=== PATIENT | female | born 1955 | race Caucasian/White ===

== ENCOUNTER 2020-02-16 14:16 | Outpatient (CLI) | payer MEDICARE, OTHER, SELFPAY ==
[2020-02-16 15:25] LABS: Basophils # 0.1 10^3/uL (0.0-0.1); Basophils % 0.5 %; Eosinophils # 0.1 10^3/uL (0.0-0.8); Eosinophils % 0.8 %; Hematocrit 44.4 % (37.0-47.0); Hemoglobin 13.9 g/dL (11.5-15.3); Lymphocytes # 2.9 10^3/uL (0.8-4.8); Lymphocytes % 28.7 %; Mean Corpuscular HGB Conc 31.3 g/dL (30.0-36.0); Mean Corpuscular Hemoglobin 28.4 pg (28.0-34.0); Mean Corpuscular Volume 90.6 fL (81-99); Mean Platelet Volume 9.6 fL (7.4-10.4); Monocytes # 0.7 10^3/uL (0.2-0.9); Monocytes % 7.2 %; Neutrophils # 6.24 10^3/uL (1.8-7.7); Neutrophils % 62.4 %; Nucleated Red Blood Cells % 0 %; Platelet Count 256 10^3/cmm (130-400); Red Cell Distribution Width 13.7 % (12.1-15.1)
[2020-02-16 16:01] LABS: 25 Hydroxy Vitamin D 17 ng/mL (30-100); Alanine Aminotransferase 24 U/L (0-33); Albumin Level 4.2 g/dL (3.5-5.2); Alkaline Phosphatase 114 IU/L (35-105); Anion Gap 15.5 (5-19); Aspartate Amino Transferase 22 U/L (0-32); Blood Urea Nitrogen 18 mg/dL (8-23); Calcium 9.6 mg/dL (8.5-10.5); Carbon Dioxide 25 mmol/L (22-29); Chloride 102 mmol/L (98-107); Globulin 3.1 g/dL (1.3-4.6); Glomerular Filtration Rate 62.8 mL/min (90-130); Glucose 99 mg/dL (65-115); Osmolality Calculated 283 mOsm/kg (285-295); Potassium 4.5 mmol/L (3.5-5.1); Sodium 138 mmol/L (136-145); Total Bilirubin 0.2 mg/dL (0.15-1.2); Total Protein 7.3 g/dL (6.6-8.7)
--- NOTE | 2020-02-18 16:22 | ONC FU_ITS ---
Dr. Rod Patient Follow-Up Note Patient: Kyler Dugan Unit #: [id number]: [id number] Dicatated By: Lenard Rod M.D.Date of Visit:Feb 16, 2020 Onc Med Follow-up/Prog Note Chief Complaint: Breast cancer. History of Present Illness: This is a 64 year-old woman with grade 2 infiltrating adenocarcinoma of the right breast, stage IIIA (pT2, pN2, M0), ER/TN positive and HER-2/syeda nonamplified. She had presented with a lump, which apparently correlated with an enlarged right axillary lymph node. She had first become aware of this in February 2015. Mammogram showed a spiculated mass in the upper outer quadrant measuring 2.2 x 2.7 x 2.6 cm. It contained numerous pleomorphic calcifications. In the breast tail/axilla there was an enlarged lymph node measuring 4.3 x 3.8 cm. Smaller adjacent subcentimeter lymph nodes also were noted. Ultrasound showed an irregular mass, the hypoechoic portion of which measured 2.2 x 1.6 x 1.4 cm. It also showed a 4.2 x 2.5 cm lymph node in the right axilla and a smaller node measuring 8.8 mm. She was seen by Dr. Mariscal and on 03/08/15 she underwent excision of the right breast mass and excision of the right axillary lymph node. The breast mass was a grade 2 infiltrating adenocarcinoma, not otherwise specified. It measured 3.1 x 3.1 cm. Tumor was noted within lymphovascular spaces. There was a component of DCIS, estimated at less than 5% of the tumor volume. Numerous margins were noted to be positive. The tumor was ER positive at 100%. The progesterone receptor was also reported positive at 1% staining, but strong intensity. It was negative for overexpression of HER-2/syeda, 1+ by IHC, and amplification ratio 1.3 by FISH. The axillary lymph node did show metastatic adenocarcinoma. The size of the lymph node was not reported. She underwent re-excision lumpectomy on 03/22/15. Pathology showed microscopic foci of residual adenocarcinoma with microscopic clusters identified within lymphovascular spaces. The final margins were free. She then underwent right low axillary dissection on 04/12/2015. Pathology showed metastatic adenocarcinoma involving 3 of 6 axillary lymph nodes. I had seen her initially on 03/30/2015, and I had recommended adjuvant chemotherapy with ACT. She did have a staging PET/CT, which was negative for metastatic disease. She completed 4 cycles of dose dense AC from 04/19/2015 thru 06/07/2015. She did have multiple side effects with the chemotherapy including fatigue, myelosuppression, diarrhea, and dehydration. Following the 4th cycle she developed symptoms of acute diverticulitis, and I did delay starting the Taxol portion of her chemotherapy until 07/03/2015. As of 08/28/2015 she completed her eighth weekly treatment of Taxol. Her treatment was stopped at that point due to increasing toxicity, primarily neuropathy. She then underwent radiation to the right breast. She completed treatment on 12/24/2015 to a total dose of 6040 cGy. She was seen for a follow-up visit on 01/02/2016. At that time she had a skin eruption on the right arm which appeared consistent with herpes zoster. She was treated with acyclovir, and she also was given gabapentin for neuropathy pain. Adjuvant hormonal therapy with anastrozole 1 mg daily began in April 2016. She had baseline DEXA scan in September 2015 which showed normal bone density, T score 0.1 in the lumbar spine, 0.6 in the left hip, and 0.2 in the right hip. Her laboratory studies in January 2017 did show evidence of vitamin D deficiency. I had seen her for a follow-up visit in January 2017. At that point she had stopped taking anastrozole because of a significant increase in her joint pain and in her fatigue. By the following month she was feeling better, and at that point she was given a prescription to start exemestane 25 mg daily. She actually didn't start taking it until some time in April. Within a month and a half, she stopped it due to generalized aching and hurting, to the point that she couldn't walk. I had seen her for a follow-up visit on 07/22/2017. At that point she was beginning to feel better, and I advised her to remain off the medication. I had then seen her again in August to discuss the possibility of continuing adjuvant hormonal therapy with tamoxifen. Initially she was undecided, but as of her follow-up visit on 12/23/2017 she agreed to start tamoxifen at 20 mg daily. She has otherwise been in good health. She has no other ongoing medical illnesses. Her only other surgery was a cholecystectomy. She is a nonsmoker. INTERIM HISTORY: She quit tamoxifen after 2 months because of side effects, the most significant of which was severe muscle cramping. She had tried taking it again in August, but with the same result. I had seen her for a follow-up visit on 09/29/2018. At that time she agreed to go back on a trial of anastrozole at 1 mg daily. She is seen for a follow-up visit. She has been feeling pretty good generally. She says her energy is okay, though not the greatest. However, she has normal activity. ECOG score 0. Her appetite is good. She has gained weight. She does not have fever. She does have some hot flashes and sweating. She has no shortness of breath, cough, or chest pain. She had an episode of nausea about a week ago, but that resolved. She has no other GI or complaints. She does have some pain when she first gets up in the morning, but otherwise no joint or bone pain. She does not complain of headache or dizziness. She sometimes still has some numbness in her hands. Her neuropathy has otherwise resolved. Medications: Anastrozole 1 Tablet (of 1 mg) Oral daily, Loratadine 1 (10 mg) Tablet Oral daily PRN, Meclizine HCl 1 Tablet (of 25 mg) Oral PRN, Meloxicam 1 Tablet (of 7.5 mg) Oral daily Allergies: No Known Allergies. Review of Systems: Constitutional - Her energy is low, but she has normal activity. Her appetite is good and weight is stable. No fevers. She has occasional hot flashes with sweating. ECOG score is 0, ENMT - She has some sinus congestion/drainage. No mouth sores. No sore throat or difficulty swallowing, Hematologic/Lymphatic - No abnormal bruising or bleeding, Respiratory - No shortness of breath. No cough. No pleuritic pain or hemoptysis, Cardiovascular - No angina pain. No palpitations, Gastrointestinal - She had some nausea about one week ago, since resolved. No vomiting. No heartburn or acid reflux. No diarrhea or constipation. No blood in the stool or black stools, Genitourinary (F) - No dysuria or hematuria. No urinary frequency. No urgency or incontinence, Musculoskeletal - No joint or bone pain, Integumentary - No skin complications, Neurologic - No headache or dizziness. She still occasionally has some numbness in hands. No other focal neurologic symptoms, Psychiatric - No anxiety or depression. No insomnia. Vital Signs: Performed on Feb 16, 2020 16:00 Height - 67.00 in Weight - 181.0 lbs (HIGH) BSA - 1.94 sq.m BMI - 28.35 Temperature - 99.0 F (HIGH) Pulse - 100 /min Respiration - 20 /min BP - 138/88 mm(hg) O2 Sat - 96 % Pain - 0 Physical Examination: Constitutional - She looks good generally, Eyes - Sclerae nonicteric. Conjunctivae clear, ENMT - No lesions noted in the oral cavity, Hematologic/Lymphatic - No cervical or clavicular adenopathy, Respiratory - Lungs are clear with good air movement bilaterally, Cardiovascular - Heart rhythm is regular. There is no murmur, gallop or rub noted, Breasts - There are no breast masses noted. There is no axillary adenopathy, Abdomen - Soft. Liver and spleen are not enlarged. There is no abdominal mass or ascites noted and there is no inguinal adenopathy, Extremities - No edema, Neurologic - There are no focal neurologic deficits noted. Lab/Imaging: Test performed on Feb 16, 2020 15:05 Sodium 138 mmol/L Vitamin D (25-Hydroxy), Total 17 ng/mL Potassium 4.5 mmol/L Chloride 102 mmol/L CO2 25 mmol/L Anion Gap 15.5 BUN 18 mg/dL Creatinine 0.9 mg/dL Cr Clearance (Est) 80.7700 mL/min eGFR 62.8 mL/min Glucose 99 mg/dL Calcium 9.6 mg/dL Protein, Total 7.3 g/dL Albumin 4.2 g/dL Globulin 3.1 g/dL Bilirubin, Total 0.2 mg/dL ALT (SGPT) 24 U/L AST (SGOT) 22 U/L Alkaline Phosphatase 114 IU/L WBC 10.0 10 3/uL RBC 4.90 10 6/uL HGB 13.9 g/dL HCT 44.4 % MCV 90.6 fL MCH 28.4 pg MCHC 31.3 g/dL RDW 13.7 % Platelet Count 256 10 3/cmm MPV 9.6 fL Neutrophils 6.24 10 3/uL Lymphocytes 2.9 10 3/uL Monocytes 0.7 10 3/uL Eosinophils 0.1 10 3/uL Basophils 0.1 10 3/uL Neutrophil % 62.4 % Lymphocyte % 28.7 % Monocyte % 7.2 % Eosinophil % 0.8 % Basophils % 0.5 % NRBC % 0 % Impression: 1. Patient with grade 2 infiltrating adenocarcinoma of the right breast, stage IIIA (pT2, pN2, M0), ER/TN positive and HER-2/syeda nonamplified. She underwent lumpectomy/excision of right axillary lymph node on 03/08/15 followed by reexcision lumpectomy on 03/22/15 and right low axillary dissection on 04/12/2015. 2. She was given adjuvant chemotherapy with dose dense Adriamycin/cyclophosphamide followed by weekly Taxol. She completed her 4th cycle of Adriamycin/cyclophosphamide on 06/07/2015. She experienced multiple toxicities including severe fatigue, diarrhea, dehydration, and myelosuppression. She then presented with symptoms of acute diverticulitis, necessitating a treatment delay. 3. She started weekly Taxol on 07/03/2015. As of 08/28/2015 she had completed 8 weekly infusions of Taxol. Treatment was stopped at that point due to increasing neuropathy. 4. She was then given radiation to the right breast, completed on 12/24/2015 to a total dose of 6040 cGy. 5. Adjuvant hormonal therapy with anastrozole 1 mg daily began in April 2016. 6. She has a significant family history which includes melanoma involving two first degree relatives and breast cancer involving one first degree relative. Her radiation treatment was complicated by an episode of herpes zoster in the right arm. It resolved with treatment. She began adjuvant hormonal therapy with anastrozole 1 mg daily in April 2016. She had tolerated it well initially, but by January 2017 she had to stop taking it due to increasing fatigue and musculoskeletal pain. Her symptoms subsequently improved, and she was then given a prescription for exemestane 25 mg daily. She started it sometime in April and she stopped taking it within 1 1/2 months due to musculoskeletal pain and other side effects. During this time there had been a slight increase in her alkaline phosphatase level. A specific cause for that was not determined. As of her follow-up visit on 07/22/2017 her symptoms were improving, and the alkaline phosphatase level appeared to be declining. She was advised to remain off the exemestane. On 12/23/2017 she began further adjuvant hormonal therapy with tamoxifen 20 mg daily. She had some hot flashes and some muscle cramping with it, but initially she was able to tolerated with acceptable toxicity. The muscle cramping, though, continued to worsen, and she eventually did have to stop taking it. She tried it again in August, but with the same result. In September 2018 she agreed to try going back on anastrozole 1 mg daily. She has since then continued to have some fatigue, though she pretty much has normal activity. She has only minimal residual neuropathy. Overall, she seems to be tolerating the anastrozole well, and thus far there has been no evidence of recurrence of the breast cancer. Plan: She continues adjuvant hormonal therapy with anastrozole 1 mg daily. She will be scheduled for a follow-up visit in 6 months. In the meantime, she will be scheduled for a bone density study, as it was last done in 2015. Signed By: Lenard Rod M.D. <<Signature on File>>
== END 2020-02-16 14:17 | disposition home or self-care (01) ==
LOC: ONCMED 14:24
PROVIDERS: Visit Provider Internal Medicine Medical Oncology
DX: C50.911 Malignant neoplasm of unspecified site of right female breast (principal); G62.0 Drug-induced polyneuropathy; T45.1X5S Adverse effect of antineoplastic and immunosuppressive drugs, sequela; E55.9 Vitamin D deficiency, unspecified; Z17.0 Estrogen receptor positive status [ER+]; Z79.811 Long term (current) use of aromatase inhibitors; Z92.3 Personal history of irradiation; Z92.21 Personal history of antineoplastic chemotherapy; Z80.3 Family history of malignant neoplasm of breast; Z80.8 Family history of malignant neoplasm of other organs or systems
CPT/HCPCS: 36415; 80053; 82306; 85025; 99214

== ENCOUNTER 2020-03-05 14:17 | Outpatient (CLI) | payer MEDICARE, OTHER, SELFPAY ==
--- NOTE | 2020-03-05 14:31 | XR_ITS ---
WS: [id number] DEXA (DUAL ENERGY X-RAY ABSORPTIOMETRY) Bone mineral density was performed using a Pins machine. HISTORY: ASYMPTOMATIC MENOPAUSAL STATE, MALIGNANT NEOPLASM OF BREAST COMPARISON: 10/08/2015 Lumbar spine BMD (L1-L4): 1.160 g/cm2 T score: -0.2 Z score: 0.9 Total hip BMD: Left: 1.080 g/cm2. T score: 0.6 Z score: 1.4 Right: 1.046 g/cm2. T score: 0.3 Z score: 1.2 10 year probability of a major osteoporotic fracture is 7% Compared to the prior study from 10/08/2015. Lumbar spine bone mineral density has decreased by 2.4%. Bilateral hips bone mineral density has increased by 0.4%. XR/XR DEXA axial skeleton* [id number] IMPRESSION: NORMAL BONE MINERAL DENSITY based upon the WHO classification for females. Significant decrease in bone mineral density in the lumbar spine since the prio r study.
== END 2020-03-05 14:18 | disposition home or self-care (01) ==
LOC: RADWPI 14:23
PROVIDERS: Visit Provider Internal Medicine Medical Oncology
DX: Z78.0 Asymptomatic menopausal state (principal); C50.919 Malignant neoplasm of unspecified site of unspecified female breast
CPT/HCPCS: 77080

== ENCOUNTER 2020-06-25 14:51 | Outpatient (CLI) | payer MEDICARE, OTHER, SELFPAY ==
--- NOTE | 2020-06-25 14:58 | MM_ITS ---
WS: [id number] DIAGNOSTIC BILATERAL DIGITAL MAMMOGRAM WITH CAD HISTORY: HX OF BREAST CA COMPARISON: 06/23/2019 and 06/18/2018 and 06/16/2017 TECHNIQUE: Bilateral craniocaudad, mediolateral oblique, and mediolateral views are submitted. Comput er aided detection utilized. Breast composition: There are scattered areas of fibroglandular density. Volume loss in the RIGHT bharati ast from prior lumpectomy. Surgical scar at the lumpectomy site in the upper-outer quadrant is stable . There is mild increased trabecular thickening which is stable throughout the breast and soft tissue thickening. LEFT breast is negative. MM/[place] [id number] IMPRESSION: BI-RADS: 2-Benign FOLLOW UP: 1 Year Follow-up
== END 2020-06-25 14:52 | disposition home or self-care (01) ==
LOC: RADSHAW 14:55
PROVIDERS: Visit Provider Internal Medicine Medical Oncology
DX: Z85.3 Personal history of malignant neoplasm of breast (principal)
CPT/HCPCS: 77066

== ENCOUNTER → 2020-07-30 09:26 | Outpatient (BNVA) | payer MEDICARE, OTHER, SELFPAY | PROVIDERS: Visit Provider Nurse Practitioner Family | DX: Z20.828 Contact with and (suspected) exposure to other viral communicable diseases (principal) | CPT/HCPCS: 87635 ==

== ENCOUNTER 2020-09-20 11:13 | Outpatient (CLI) | payer MEDICARE, OTHER, SELFPAY ==
[2020-09-20 12:03] LABS: Basophils # 0.1 10^3/uL (0.0-0.1); Basophils % 0.7 %; Eosinophils % 0.4 %; Hematocrit 45.6 % (37.0-47.0); Hemoglobin 14.6 g/dL (11.5-15.3); Lymphocytes # 2.4 10^3/uL (0.8-4.8); Lymphocytes % 29.1 %; Mean Corpuscular Hemoglobin 28.3 pg (28.0-34.0); Mean Corpuscular Volume 88.4 fL (81-99); Mean Platelet Volume 9.5 fL (7.4-10.4); Monocytes # 0.7 10^3/uL (0.2-0.9); Neutrophils # 5.11 10^3/uL (1.8-7.7); Neutrophils % 61.6 %; Nucleated Red Blood Cells % 0 %; Platelet Count 265 10^3/cmm (130-400); Red Blood Count 5.16 10^6/uL (4.1-5.3); Red Cell Distribution Width 13.5 % (12.1-15.1); White Blood Count 8.3 10^3/uL (4.0-10.0)
[2020-09-20 12:43] LABS: 25 Hydroxy Vitamin D 20 ng/mL (30-100); Alanine Aminotransferase 36 U/L (0-33); Albumin Level 4.3 g/dL (3.5-5.2); Alkaline Phosphatase 138 IU/L (35-105); Aspartate Amino Transferase 26 U/L (0-32); Blood Urea Nitrogen 15 mg/dL (8-23); Calcium 9.8 mg/dL (8.5-10.5); Carbon Dioxide 26 mmol/L (22-29); Chloride 106 mmol/L (98-107); Globulin 3.3 g/dL (1.3-4.6); Glomerular Filtration Rate 62.8 mL/min (90-130); Glucose 86 mg/dL (65-115); Osmolality Calculated 290 mOsm/kg (285-295); Sodium 140 mmol/L (136-145); Total Bilirubin 0.3 mg/dL (0.15-1.2); Total Protein 7.6 g/dL (6.6-8.7)
--- NOTE | 2020-09-21 09:43 | ONC FU_ITS ---
Dr. Rod Patient Follow-Up Note Patient: Kyler Dugan Unit #: [id number]: 1955 Dicatated By: Lenard Rod M.D.Date of Visit:Sep 20, 2020 Onc Med Follow-up/Prog Note Chief Complaint: Breast cancer. History of Present Illness: This is a 64 year-old woman with grade 2 infiltrating adenocarcinoma of the right breast, stage IIIA (pT2, pN2, M0), ER/HI positive and HER-2/syeda nonamplified. She had presented with a lump, which apparently correlated with an enlarged right axillary lymph node. She had first become aware of this in February 2015. Mammogram showed a spiculated mass in the upper outer quadrant measuring 2.2 x 2.7 x 2.6 cm. It contained numerous pleomorphic calcifications. In the breast tail/axilla there was an enlarged lymph node measuring 4.3 x 3.8 cm. Smaller adjacent subcentimeter lymph nodes also were noted. Ultrasound showed an irregular mass, the hypoechoic portion of which measured 2.2 x 1.6 x 1.4 cm. It also showed a 4.2 x 2.5 cm lymph node in the right axilla and a smaller node measuring 8.8 mm. She was seen by Dr. Mariscal and on 03/08/15 she underwent excision of the right breast mass and excision of the right axillary lymph node. The breast mass was a grade 2 infiltrating adenocarcinoma, not otherwise specified. It measured 3.1 x 3.1 cm. Tumor was noted within lymphovascular spaces. There was a component of DCIS, estimated at less than 5% of the tumor volume. Numerous margins were noted to be positive. The tumor was ER positive at 100%. The progesterone receptor was also reported positive at 1% staining, but strong intensity. It was negative for overexpression of HER-2/syeda, 1+ by IHC, and amplification ratio 1.3 by FISH. The axillary lymph node did show metastatic adenocarcinoma. The size of the lymph node was not reported. She underwent re-excision lumpectomy on 03/22/15. Pathology showed microscopic foci of residual adenocarcinoma with microscopic clusters identified within lymphovascular spaces. The final margins were free. She then underwent right low axillary dissection on 04/12/2015. Pathology showed metastatic adenocarcinoma involving 3 of 6 axillary lymph nodes. I had seen her initially on 03/30/2015, and I had recommended adjuvant chemotherapy with ACT. She did have a staging PET/CT, which was negative for metastatic disease. She completed 4 cycles of dose dense AC from 04/19/2015 thru 06/07/2015. She did have multiple side effects with the chemotherapy including fatigue, myelosuppression, diarrhea, and dehydration. Following the 4th cycle she developed symptoms of acute diverticulitis, and I did delay starting the Taxol portion of her chemotherapy until 07/03/2015. As of 08/28/2015 she completed her eighth weekly treatment of Taxol. Her treatment was stopped at that point due to increasing toxicity, primarily neuropathy. She then underwent radiation to the right breast. She completed treatment on 12/24/2015 to a total dose of 6040 cGy. She was seen for a follow-up visit on 01/02/2016. At that time she had a skin eruption on the right arm which appeared consistent with herpes zoster. She was treated with acyclovir, and she also was given gabapentin for neuropathy pain. Adjuvant hormonal therapy with anastrozole 1 mg daily began in January 2016. She had baseline DEXA scan in September 2015 which showed normal bone density, T score 0.1 in the lumbar spine, 0.6 in the left hip, and 0.2 in the right hip. Her laboratory studies in January 2017 did show evidence of vitamin D deficiency. I had seen her for a follow-up visit in January 2017. At that point she had stopped taking anastrozole because of a significant increase in her joint pain and in her fatigue. By the following month she was feeling better, and at that point she was given a prescription to start exemestane 25 mg daily. She actually didn't start taking it until some time in April. Within a month and a half, she stopped it due to generalized aching and hurting, to the point that she couldn't walk. I had seen her for a follow-up visit on 07/22/2017. At that point she was beginning to feel better, and I advised her to remain off the medication. I had then seen her again in August to discuss the possibility of continuing adjuvant hormonal therapy with tamoxifen. Initially she was undecided, but as of her follow-up visit on 12/23/2017 she agreed to start tamoxifen at 20 mg daily. She quit it after 2 months because of side effects, the most significant of which was severe muscle cramping. She had tried taking it again in August, but with the same result. I had seen her for a follow-up visit on 09/29/2018. At that time she agreed to go back on a trial of anastrozole at 1 mg daily, and during subsequent followup she was able to tolerate it with acceptable toxicity. She has otherwise been in good health. She has no other ongoing medical illnesses. Her only other surgery was a cholecystectomy. She is a nonsmoker. INTERIM HISTORY: She is seen for a follow-up visit. She has been feeling pretty good generally. She says she was off the anastrozole during the month of July because of pain in her left heel. It did not improve when she was off treatment. She otherwise has just mild joint pain in her hands and sometimes in her feet. Her energy has been pretty good. She has normal activity. ECOG score is zero. She has good appetite. She has not had fever or night sweats. She sometimes has hot flashes. She has some shortness of breath with activity. She has chronic sinus drainage and cough. She does not complain of chest pain. She has no GI or complaints. She does not complain of headache or dizziness. She has just occasional neuropathy symptoms in her hands. Medications: Anastrozole 1 Tablet (of 1 mg) Oral daily, Loratadine 1 (10 mg) Tablet Oral daily PRN, Meclizine HCl 1 Tablet (of 25 mg) Oral PRN, Meloxicam 1 Tablet (of 7.5 mg) Oral daily Allergies: No Known Allergies. Vital Signs: Performed on Sep 20, 2020 12:15 Height - 67.00 in Weight - 184.6 lbs (HIGH) BSA - 1.95 sq.m BMI - 28.91 Temperature - 98.5 F Pulse - 103 /min (HIGH) Respiration - 17 /min BP - 152/96 mm(hg) (HIGH) O2 Sat - 95 % (LOW) Pain - 0 Physical Examination: Constitutional - She looks good generally, Eyes - Sclerae nonicteric. Conjunctivae clear, ENMT - No lesions noted in the oral cavity, Hematologic/Lymphatic - No cervical, clavicular, or axillary adenopathy, Respiratory - Lungs are clear with good air movement bilaterally, Cardiovascular - Heart rhythm is regular. There is no murmur, gallop or rub noted, Abdomen - Soft. Liver and spleen are not enlarged. There is no abdominal mass or ascites noted and there is no inguinal adenopathy, Extremities - No edema, Neurologic - There are no focal neurologic deficits noted. Lab/Imaging: Test performed on Sep 20, 2020 11:52 Sodium 140 mmol/L Vitamin D (25-Hydroxy), Total 20 ng/mL Potassium 4.0 mmol/L Chloride 106 mmol/L CO2 26 mmol/L Anion Gap 12.0 BUN 15 mg/dL Creatinine 0.9 mg/dL Cr Clearance (Est) 82.3800 mL/min eGFR 62.8 mL/min Glucose 86 mg/dL Osmolality - Calculated 290 mOsm/kg Calcium 9.8 mg/dL Protein, Total 7.6 g/dL Albumin 4.3 g/dL Globulin 3.3 g/dL Bilirubin, Total 0.3 mg/dL ALT (SGPT) 36 U/L AST (SGOT) 26 U/L Alkaline Phosphatase 138 IU/L WBC 8.3 10 3/uL RBC 5.16 10 6/uL HGB 14.6 g/dL HCT 45.6 % MCV 88.4 fL MCH 28.3 pg MCHC 32.0 g/dL RDW 13.5 % Platelet Count 265 10 3/cmm MPV 9.5 fL Neutrophils 5.11 10 3/uL Lymphocytes 2.4 10 3/uL Monocytes 0.7 10 3/uL Eosinophils 0.0 10 3/uL Basophils 0.1 10 3/uL Neutrophil % 61.6 % Lymphocyte % 29.1 % Monocyte % 8.0 % Eosinophil % 0.4 % Basophils % 0.7 % NRBC % 0 % Problem List: 1. Grade 2 infiltrating adenocarcinoma of the right breast, stage IIIA (pT2, pN2, M0), ER/HI positive and HER-2/syeda nonamplified. She underwent lumpectomy/excision of right axillary lymph node on 03/08/15 followed by reexcision lumpectomy on 03/22/15 and right low axillary dissection on 04/12/2015. 2. Vitamin D deficiency. 3. She has a significant family history which includes melanoma involving two first degree relatives and breast cancer involving one first degree relative. Problems Addressed with this Encounter and Plan: 1. Grade 2 infiltrating adenocarcinoma of the right breast, stage IIIA (pT2, pN2, M0), ER/HI positive and HER-2/syeda nonamplified. She underwent lumpectomy/excision of right axillary lymph node on 03/08/15 followed by reexcision lumpectomy on 03/22/15 and right low axillary dissection on 04/12/2015. She was given adjuvant chemotherapy with dose dense Adriamycin/cyclophosphamide followed by weekly Taxol. Due to worsening neuropathy, the Taxol portion of her treatment was stopped after 8 weekly infusions, completed in August 2015. She then underwent radiation to the right breast, completed on 12/24/2015 to a total dose of 6040 cGy. Adjuvant hormonal therapy with anastrozole 1 mg daily began in January 2016. In January 2017 her adjuvant hormonal therapy was changed to exemestane 25 mg daily due to increased fatigue and musculoskeletal pain. She tolerated the exemestane very poorly, and it was stopped within 2 months. In December 2017 she began further as hormonal therapy with tamoxifen 20 mg daily, which she also tolerated poorly. As of September 2018 she has agreed to restart anastrozole 1 mg daily and during subsequent follow-up she was able to tolerated with acceptable toxicity. Overall, she has been doing well clinically. Recently she has had left heel pain, which did not improve with temporarily stopping the anastrozole. She otherwise has just mild joint pain and she has very minimal residual neuropathy. Thus far during follow-up there has been no evidence of recurrence of the breast cancer. She continues adjuvant hormonal therapy with anastrozole 1 mg daily. She will be scheduled for a follow-up visit in 6 months. In the meantime, I will arrange for referral to Dr. Zayas for the left heel pain. 2. Vitamin D deficiency. She is currently taking 2000 units of vitamin D3 daily. She will now start vitamin D2 50,000 units weekly for 4 weeks then monthly. Signed By: Lenard Rod M.D. <<Signature on File>>
== END 2020-09-20 11:14 | disposition home or self-care (01) ==
PROVIDERS: Visit Provider Internal Medicine Medical Oncology
DX: C50.411 Malignant neoplasm of upper-outer quadrant of right female breast (principal); Z17.0 Estrogen receptor positive status [ER+]; E55.9 Vitamin D deficiency, unspecified; Z79.811 Long term (current) use of aromatase inhibitors; Z78.0 Asymptomatic menopausal state; Z79.899 Other long term (current) drug therapy; Z92.21 Personal history of antineoplastic chemotherapy; Z92.3 Personal history of irradiation
CPT/HCPCS: 36415; 80053; 82306; 85025; 99214

== ENCOUNTER → 2020-10-15 14:01 | Outpatient (BNVA) | payer MEDICARE, OTHER, SELFPAY | PROVIDERS: Visit Provider Podiatrist Foot & Ankle Surgery | DX: M79.672 Pain in left foot (principal) | CPT/HCPCS: 73630 ==

== ENCOUNTER 2021-03-19 13:47 | Outpatient (CLI) | payer MEDICARE, OTHER, SELFPAY ==
[2021-03-19 14:33] LABS: Basophils # 0.1 10^3/uL (0.0-0.1); Basophils % 0.7 %; Eosinophils # 0.1 10^3/uL (0.0-0.8); Eosinophils % 0.8 %; Hematocrit 46.1 % (37.0-47.0); Hemoglobin 14.2 g/dL (11.5-15.3); Lymphocytes # 2.4 10^3/uL (0.8-4.8); Lymphocytes % 28.1 %; Mean Corpuscular HGB Conc 30.8 g/dL (30.0-36.0); Mean Corpuscular Hemoglobin 28.5 pg (28.0-34.0); Mean Corpuscular Volume 92.6 fL (81-99); Mean Platelet Volume 9.8 fL (7.4-10.4); Monocytes # 0.6 10^3/uL (0.2-0.9); Monocytes % 7.4 %; Neutrophils # 5.42 10^3/uL (1.8-7.7); Neutrophils % 62.5 %; Nucleated Red Blood Cells % 0 %; Platelet Count 260 10^3/cmm (130-400); Red Blood Count 4.98 10^6/uL (4.1-5.3); White Blood Count 8.7 10^3/uL (4.0-10.0)
[2021-03-19 15:13] LABS: Alanine Aminotransferase 30 U/L (0-33); Albumin Level 3.9 g/dL (3.5-5.2); Alkaline Phosphatase 125 IU/L (35-105); Anion Gap 12.5 (5-19); Aspartate Amino Transferase 21 U/L (0-32); Blood Urea Nitrogen 15 mg/dL (8-23); Calcium 8.9 mg/dL (8.5-10.5); Carbon Dioxide 27 mmol/L (22-29); Chloride 107 mmol/L (98-107); Globulin 3.1 g/dL (1.3-4.6); Glomerular Filtration Rate 62.6 mL/min (90-130); Glucose 140 mg/dL (65-115); Osmolality Calculated 297 mOsm/kg (285-295); Potassium 4.5 mmol/L (3.5-5.1); Sodium 142 mmol/L (136-145); Total Bilirubin 0.2 mg/dL (0.15-1.2)
[2021-03-19 15:28] LABS: 25 Hydroxy Vitamin D 30 ng/mL (30-100)
--- NOTE | 2021-03-20 07:03 | ONC FU_ITS ---
Dr. Rod Patient Follow-Up Note Patient: Kyler Dugan Unit #: [id number]: [id number] Dicatated By: Lenard Rod M.D.Date of Visit:Mar 19, 2021 Onc Med Follow-up/Prog Note Chief Complaint: Breast cancer. 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 She had presented with a lump, which apparently correlated with an enlarged right axillary lymph node. She had first become aware of this in February 2015. Mammogram showed a spiculated mass in the upper outer quadrant measuring 2.2 x 2.7 x 2.6 cm. It contained numerous pleomorphic calcifications. In the breast tail/axilla there was an enlarged lymph node measuring 4.3 x 3.8 cm. Smaller adjacent subcentimeter lymph nodes also were noted. Ultrasound showed an irregular mass, the hypoechoic portion of which measured 2.2 x 1.6 x 1.4 cm. It also showed a 4.2 x 2.5 cm lymph node in the right axilla and a smaller node measuring 8.8 mm. She was seen by Dr. Mariscal and on 03/08/15 she underwent excision of the right breast mass and excision of the right axillary lymph node. The breast mass was a grade 2 infiltrating adenocarcinoma, not otherwise specified. It measured 3.1 x 3.1 cm. Tumor was noted within lymphovascular spaces. There was a component of DCIS, estimated at less than 5% of the tumor volume. Numerous margins were noted to be positive. The tumor was ER positive at 100%. The progesterone receptor was also reported positive at 1% staining, but strong intensity. It was negative for overexpression of HER-2/syeda, 1+ by IHC, and amplification ratio 1.3 by FISH. The axillary lymph node did show metastatic adenocarcinoma. The size of the lymph node was not reported. She underwent re-excision lumpectomy on 03/22/15. Pathology showed microscopic foci of residual adenocarcinoma with microscopic clusters identified within lymphovascular spaces. The final margins were free. She then underwent right low axillary dissection on 04/12/2015. Pathology showed metastatic adenocarcinoma involving 3 of 6 axillary lymph nodes. I had seen her initially on 03/30/2015, and I had recommended adjuvant chemotherapy with ACT. She did have a staging PET/CT, which was negative for metastatic disease. She completed 4 cycles of dose dense AC from 04/19/2015 thru 06/07/2015. She did have multiple side effects with the chemotherapy including fatigue, myelosuppression, diarrhea, and dehydration. Following the 4th cycle she developed symptoms of acute diverticulitis, and I did delay starting the Taxol portion of her chemotherapy until 07/03/2015. As of 08/28/2015 she completed her eighth weekly treatment of Taxol. Her treatment was stopped at that point due to increasing toxicity, primarily neuropathy. She then underwent radiation to the right breast. She completed treatment on 12/24/2015 to a total dose of 6040 cGy. She was seen for a follow-up visit on 01/02/2016. At that time she had a skin eruption on the right arm which appeared consistent with herpes zoster. She was treated with acyclovir, and she also was given gabapentin for neuropathy pain. Adjuvant hormonal therapy with anastrozole 1 mg daily began in January 2016. She had baseline DEXA scan in September 2015 which showed normal bone density, T score 0.1 in the lumbar spine, 0.6 in the left hip, and 0.2 in the right hip. Her laboratory studies in January 2017 did show evidence of vitamin D deficiency. I had seen her for a follow-up visit in January 2017. At that point she had stopped taking anastrozole because of a significant increase in her joint pain and in her fatigue. By the following month she was feeling better, and at that point she was given a prescription to start exemestane 25 mg daily. She actually didn't start taking it until some time in April. Within a month and a half, she stopped it due to generalized aching and hurting, to the point that she couldn't walk. I had seen her for a follow-up visit on 07/22/2017. At that point she was beginning to feel better, and I advised her to remain off the medication. I had then seen her again in August to discuss the possibility of continuing adjuvant hormonal therapy with tamoxifen. Initially she was undecided, but as of her follow-up visit on 12/23/2017 she agreed to start tamoxifen at 20 mg daily. She quit it after 2 months because of side effects, the most significant of which was severe muscle cramping. She had tried taking it again in August, but with the same result. I had seen her for a follow-up visit on 09/29/2018. At that time she agreed to go back on a trial of anastrozole at 1 mg daily, and during subsequent followup she was able to tolerate it with acceptable toxicity. She has otherwise been in good health. She has no other ongoing medical illnesses. Her only other surgery was a cholecystectomy. She is a nonsmoker. INTERIM HISTORY: She is seen for a follow-up visit. She indicates that she had stopped taking the anastrozole in January, mainly because she had reached the 5-year point from initiation of treatment. She has been feeling a little better since then. Her energy has been okay, and she has normal activity. She has good appetite. She has not had fever. She still has some hot flashes and sweating. She reports having sinus drainage and cough. She recently has had sore throat. She does not complain of shortness of breath or chest pain. She has no GI or complaints. She continues to have musculoskeletal pain, mostly in her feet. Her left knee sometimes hurts. She continues to have muscle cramps, mostly in her legs and mainly when she first wakes up in the morning. She does not complain of headache or dizziness. She occasionally has numbness/tingling in her fingertips. Medications: Loratadine 1 (10 mg) Tablet Oral daily PRN, Meclizine HCl 1 Tablet (of 25 mg) Oral PRN, Meloxicam 1 Tablet (of 7.5 mg) Oral daily Allergies: No Known Allergies. Vital Signs: Performed on Mar 19, 2021 16:07 Height - 67.00 in Weight - 179.2 lbs (LOW) BSA - 1.93 sq.m BMI - 28.07 Temperature - 97.5 F (LOW) Pulse - 110 /min (HIGH) Respiration - 18 /min BP - 106/69 mm(hg) O2 Sat - 94 % (LOW) Pain - 0 Fatigue - 3 Physical Examination: Constitutional - She looks good generally, Eyes - Sclerae nonicteric. Conjunctivae clear, ENMT - No lesions noted in the oral cavity, Hematologic/Lymphatic - No cervical, clavicular, or axillary adenopathy, Respiratory - Lungs are clear with good air movement bilaterally, Cardiovascular - Heart rhythm is regular. There is no murmur, gallop or rub noted, Abdomen - Soft. Liver and spleen are not enlarged. There is no abdominal mass or ascites noted and there is no inguinal adenopathy, Extremities - Slight pedal edema, Neurologic - There are no focal neurologic deficits noted. Lab/Imaging: Test performed on Mar 19, 2021 14:20 Sodium 142 mmol/L Vitamin D (25-Hydroxy), Total 30 ng/mL Potassium 4.5 mmol/L Chloride 107 mmol/L CO2 27 mmol/L Anion Gap 12.5 BUN 15 mg/dL Creatinine 0.9 mg/dL Cr Clearance (Est) 78.90 mL/min eGFR 62.6 mL/min Glucose 140 mg/dL Osmolality - Calculated 297 mOsm/kg Calcium 8.9 mg/dL Protein, Total 7.0 g/dL Albumin 3.9 g/dL Globulin 3.1 g/dL Bilirubin, Total 0.2 mg/dL ALT (SGPT) 30 U/L AST (SGOT) 21 U/L Alkaline Phosphatase 125 IU/L WBC 8.7 10 3/uL RBC 4.98 10 6/uL HGB 14.2 g/dL HCT 46.1 % MCV 92.6 fL MCH 28.5 pg MCHC 30.8 g/dL RDW 14.0 % Platelet Count 260 10 3/cmm MPV 9.8 fL Neutrophils 5.42 10 3/uL Lymphocytes 2.4 10 3/uL Monocytes 0.6 10 3/uL Eosinophils 0.1 10 3/uL Basophils 0.1 10 3/uL Neutrophil % 62.5 % Lymphocyte % 28.1 % Monocyte % 7.4 % Eosinophil % 0.8 % Basophils % 0.7 % NRBC % 0 % Problem List: 1. Grade 2 infiltrating adenocarcinoma of the right breast, stage IB (pT2, pN2, M0), ER/IA positive and HER-2/syeda nonamplified. She underwent lumpectomy/excision of right axillary lymph node on 03/08/15 followed by reexcision lumpectomy on 03/22/15 and right low axillary dissection on 04/12/2015. 2. Vitamin D deficiency. 3. She has a significant family history which includes melanoma involving two first degree relatives and breast cancer involving one first degree relative. Problems Addressed with this Encounter and Plan: 1. Patient with grade 2 infiltrating adenocarcinoma of the right breast, stage IB (pT2, pN2, M0), ER/IA positive and HER-2/syeda nonamplified. She underwent lumpectomy/excision of right axillary lymph node on 03/08/15 followed by reexcision lumpectomy on 03/22/15 and right low axillary dissection on 04/12/2015. She was given adjuvant chemotherapy with dose dense Adriamycin/cyclophosphamide followed by weekly Taxol. Due to worsening neuropathy, the Taxol portion of her treatment was stopped after 8 weekly infusions, completed in August 2015. She then underwent radiation to the right breast, completed on 12/24/2015 to a total dose of 6040 cGy. Adjuvant hormonal therapy with anastrozole 1 mg daily began in January 2016. In January 2017 her adjuvant hormonal therapy was changed to exemestane 25 mg daily due to increased fatigue and musculoskeletal pain. She tolerated the exemestane very poorly, and it was stopped within 2 months. In December 2017 she began further as hormonal therapy with tamoxifen 20 mg daily, which she also tolerated poorly. As of September 2018 she has agreed to restart anastrozole 1 mg daily and during subsequent follow-up she was able to tolerate it with acceptable toxicity. She is now basically at 5 years following initiation of her adjuvant hormonal therapy. Due to her relatively advanced stage disease, she is still at risk for recurrence and she potentially would benefit with extended adjuvant hormonal therapy. As such, I am going to request a Breast Cancer Index study, I will consider continuing her adjuvant therapy if her risk score is higher and if it indicates benefit with extended therapy. 2. Vitamin D deficiency. Her vitamin D level is now in normal range. She will continue her current treatment with vitamin D3 2000 units daily and vitamin D2 50,000 units monthly. Signed By: Lenard Rod M.D. <<Signature on File>>
== END 2021-03-19 13:48 | disposition home or self-care (01) ==
PROVIDERS: Visit Provider Internal Medicine Medical Oncology
DX: C50.811 Malignant neoplasm of overlapping sites of right female breast (principal); Z17.0 Estrogen receptor positive status [ER+]; Z90.11 Acquired absence of right breast and nipple; E55.9 Vitamin D deficiency, unspecified; Z80.3 Family history of malignant neoplasm of breast; Z80.8 Family history of malignant neoplasm of other organs or systems; Z79.811 Long term (current) use of aromatase inhibitors; Z92.21 Personal history of antineoplastic chemotherapy; Z92.3 Personal history of irradiation
CPT/HCPCS: 36415; 80053; 82306; 85025; 99214

== ENCOUNTER → 2021-06-13 16:46 | Outpatient (BNVA) | payer MEDICARE, OTHER, SELFPAY | PROVIDERS: Visit Provider Family Medicine | DX: Z20.822 Contact with and (suspected) exposure to COVID-19 (principal) | CPT/HCPCS: 87400; 87635 ==

== ENCOUNTER 2021-06-28 11:48 | Outpatient (CLI) | payer MEDICARE, OTHER, SELFPAY ==
--- NOTE | 2021-06-28 12:07 | MM_ITS ---
WS: [id number] DIAGNOSTIC BILATERAL DIGITAL MAMMOGRAM WITH CAD HISTORY: HX OF BREAST CA COMPARISON: 06/25/2020, 06/23/2019 and 06/18/2018 TECHNIQUE: Bilateral craniocaudad, mediolateral oblique, and mediolateral views are submitted. Comput er aided detection utilized. Breast composition: There are scattered areas of fibroglandular density. Mild volume loss in the RIGH T breast as scar towards the superior posterior RIGHT breast. No recurrent mass or calcifications. Mi ld stable trabecular thickening RIGHT breast. MM/[id number] IMPRESSION: BI-RADS: 2-Benign FOLLOW UP: 1 Year Follow-up
== END 2021-06-28 11:49 | disposition home or self-care (01) ==
LOC: RADSHAW 11:53
PROVIDERS: PCP Family Medicine; Visit Provider Internal Medicine Medical Oncology
DX: Z85.3 Personal history of malignant neoplasm of breast (principal)
CPT/HCPCS: 77066

== ENCOUNTER 2021-11-06 10:29 | Outpatient (CLI) | payer MEDICARE, OTHER, SELFPAY ==
[2021-11-06 11:34] LABS: Basophils # 0.1 10^3/uL (0.0-0.1); Basophils % 0.7 %; Eosinophils # 0.1 10^3/uL (0.0-0.8); Eosinophils % 0.7 %; Hematocrit 44.8 % (37.0-47.0); Hemoglobin 14.2 g/dL (11.5-15.3); Lymphocytes # 2.9 10^3/uL (0.8-4.8); Mean Corpuscular HGB Conc 31.7 g/dL (30.0-36.0); Mean Corpuscular Hemoglobin 28.6 pg (28.0-34.0); Mean Corpuscular Volume 90.1 fl (81-99); Mean Platelet Volume 9.6 fL (7.4-10.4); Monocytes # 0.7 10^3/uL (0.2-0.9); Monocytes % 8.3 %; Nucleated Red Blood Cells % 0 %; Platelet Count 275 10^3/cmm (130-400); Red Blood Count 4.97 10^6/uL (4.1-5.3); Red Cell Distribution Width 13.4 % (12.1-15.1); White Blood Count 8.6 10^3/uL (4.0-10.0)
[2021-11-06 12:33] LABS: Alanine Aminotransferase 28 U/L (0-33); Albumin Level 4.3 g/dL (3.5-5.2); Alkaline Phosphatase 116 IU/L (35-105); Anion Gap 17.1 (5-19); Aspartate Amino Transferase 24 U/L (0-32); Blood Urea Nitrogen 17 mg/dL (8-23); Calcium 9.8 mg/dL (8.5-10.5); Carbon Dioxide 21 mmol/L (22-29); Chloride 107 mmol/L (98-107); Globulin 2.8 g/dL (1.3-4.6); Glomerular Filtration Rate 55.3 mL/min (90-130); Glucose 142 mg/dL (65-115); Osmolality Calculated 296 mOsm/kg (285-295); Potassium 4.1 mmol/L (3.5-5.1); Sodium 141 mmol/L (136-145); Total Bilirubin 0.3 mg/dL (0.15-1.2); Total Protein 7.1 g/dL (6.6-8.7)
[2021-11-06 16:38] LABS: 25 Hydroxy Vitamin D 18 ng/mL (30-100)
--- NOTE | 2021-11-08 07:01 | ONC FU_ITS ---
Dr. Rod Patient Follow-Up Note Patient: Kyler Dugan Unit #: [id number]: [id number] Dicatated By: Lenard Rod M.D.Date of Visit:Nov 06, 2021 Onc Med Follow-up/Prog Note Chief Complaint: Breast cancer. History of Present Illness: This is a 66 year-old woman with grade 2 infiltrating adenocarcinoma of the right breast, stage IB (pT2, pN2, M0), ER/MA positive and HER-2/syeda nonamplified. She had presented with a lump, which apparently correlated with an enlarged right axillary lymph node. She had first become aware of this in February 2015. Mammogram showed a spiculated mass in the upper outer quadrant measuring 2.2 x 2.7 x 2.6 cm. It contained numerous pleomorphic calcifications. In the breast tail/axilla there was an enlarged lymph node measuring 4.3 x 3.8 cm. Smaller adjacent subcentimeter lymph nodes also were noted. Ultrasound showed an irregular mass, the hypoechoic portion of which measured 2.2 x 1.6 x 1.4 cm. It also showed a 4.2 x 2.5 cm lymph node in the right axilla and a smaller node measuring 8.8 mm. She was seen by Dr. Mariscal and on 03/08/15 she underwent excision of the right breast mass and excision of the right axillary lymph node. The breast mass was a grade 2 infiltrating adenocarcinoma, not otherwise specified. It measured 3.1 x 3.1 cm. Tumor was noted within lymphovascular spaces. There was a component of DCIS, estimated at less than 5% of the tumor volume. Numerous margins were noted to be positive. The tumor was ER positive at 100%. The progesterone receptor was also reported positive at 1% staining, but strong intensity. It was negative for overexpression of HER-2/syeda, 1+ by IHC, and amplification ratio 1.3 by FISH. The axillary lymph node did show metastatic adenocarcinoma. The size of the lymph node was not reported. She underwent re-excision lumpectomy on 03/22/15. Pathology showed microscopic foci of residual adenocarcinoma with microscopic clusters identified within lymphovascular spaces. The final margins were free. She then underwent right low axillary dissection on 04/12/2015. Pathology showed metastatic adenocarcinoma involving 3 of 6 axillary lymph nodes. I had seen her initially on 03/30/2015, and I had recommended adjuvant chemotherapy with ACT. She did have a staging PET/CT, which was negative for metastatic disease. She completed 4 cycles of dose dense AC from 04/19/2015 thru 06/07/2015. She did have multiple side effects with the chemotherapy including fatigue, myelosuppression, diarrhea, and dehydration. Following the 4th cycle she developed symptoms of acute diverticulitis, and I did delay starting the Taxol portion of her chemotherapy until 07/03/2015. As of 08/28/2015 she completed her eighth weekly treatment of Taxol. Her treatment was stopped at that point due to increasing toxicity, primarily neuropathy. She then underwent radiation to the right breast. She completed treatment on 12/24/2015 to a total dose of 6040 cGy. She was seen for a follow-up visit on 01/02/2016. At that time she had a skin eruption on the right arm which appeared consistent with herpes zoster. She was treated with acyclovir, and she also was given gabapentin for neuropathy pain. Adjuvant hormonal therapy with anastrozole 1 mg daily began in January 2016. She had baseline DEXA scan in September 2015 which showed normal bone density, T score 0.1 in the lumbar spine, 0.6 in the left hip, and 0.2 in the right hip. Her laboratory studies in January 2017 did show evidence of vitamin D deficiency. I had seen her for a follow-up visit in January 2017. At that point she had stopped taking anastrozole because of a significant increase in her joint pain and in her fatigue. By the following month she was feeling better, and at that point she was given a prescription to start exemestane 25 mg daily. She actually didn't start taking it until some time in April. Within a month and a half, she stopped it due to generalized aching and hurting, to the point that she couldn't walk. I had seen her for a follow-up visit on 07/22/2017. At that point she was beginning to feel better, and I advised her to remain off the medication. I had then seen her again in August to discuss the possibility of continuing adjuvant hormonal therapy with tamoxifen. Initially she was undecided, but as of her follow-up visit on 12/23/2017 she agreed to start tamoxifen at 20 mg daily. She quit it after 2 months because of side effects, the most significant of which was severe muscle cramping. She had tried taking it again in August, but with the same result. I had seen her for a follow-up visit on 09/29/2018. At that time she agreed to go back on a trial of anastrozole at 1 mg daily, and during subsequent followup she was able to tolerate it with acceptable toxicity. She has otherwise been in good health. She has no other ongoing medical illnesses. Her only other surgery was a cholecystectomy. She is a nonsmoker. INTERIM HISTORY: As of her follow-up visit in March 2021 she was continued to have some fatigue and musculoskeletal pain with the anastrozole, but she felt that it was tolerable. As she had completed 5 years of adjuvant hormonal therapy, we had a discussion as to whether she would want to continue with extended adjuvant therapy. I had requested the breast cancer index study to help guide that decision, but it was denied by her insurance carrier. Ultimately, she opted to continue treatment. She is seen for a follow-up visit. She has been feeling pretty good generally. She does complain that she feels tired and sleepy, but she has continued to work part-time. Her ECOG score is 1. She has good appetite. She has not had fever or night sweats. She sometimes has hot flashes. She always has sinus drainage. She has not had sore mouth or throat. She does not complain of cough, and she has not been having shortness of breath or chest pain. She has no GI or complaints. She continues to complain that she aches a lot, but it is still tolerable. She does not complain of headache or dizziness. She still sometimes has a little numbness in her fingers, but not often. Medications: Anastrozole 1 Tablet (of 1 mg) Oral daily, Loratadine 1 (10 mg) Tablet Oral daily PRN, Meclizine HCl 1 Tablet (of 25 mg) Oral PRN, Meloxicam 1 Tablet (of 7.5 mg) Oral daily PRN Allergies: No Known Allergies. Vital Signs: Performed on Nov 06, 2021 14:43 Weight - 185.6 lbs (HIGH) BSA - 0.00 sq.m BMI - 0.00 Temperature - 98.8 F Pulse - 120 /min (HIGH) Respiration - 16 /min BP - 150/79 mm(hg) (HIGH) O2 Sat - 95 % (LOW) Pain - 0 Fatigue - 5 Physical Examination: Constitutional - She looks good generally, Eyes - Sclerae nonicteric. Conjunctivae clear, ENMT - No lesions noted in the oral cavity, Hematologic/Lymphatic - No cervical or clavicular adenopathy, Respiratory - Lungs are clear with good air movement bilaterally, Cardiovascular - Heart rhythm is regular. There is a mild tachycardia. There is no murmur, gallop or rub noted, Breasts - This is a residual nodule just inferior to the lumpectomy site in the right breast. The left breast shows no mass. There is no axillary adenopathy, Abdomen - Soft. Liver and spleen are not enlarged. There is no abdominal mass or ascites noted and there is no inguinal adenopathy, Extremities - No edema. Pedal pulses are palpable bilaterally, Neurologic - There are no focal neurologic deficits noted. Lab/Imaging: Test performed on Nov 06, 2021 11:15 Sodium 141 mmol/L TSH 3.10 uIU/mL Vitamin D (25-Hydroxy), Total 18 ng/mL Potassium 4.1 mmol/L Chloride 107 mmol/L CO2 21 mmol/L Anion Gap 17.1 BUN 17 mg/dL Creatinine 1.0 mg/dL Cr Clearance (Est) 72.55 mL/min eGFR 55.3 mL/min Glucose 142 mg/dL Osmolality - Calculated 296 mOsm/kg Calcium 9.8 mg/dL Protein, Total 7.1 g/dL Albumin 4.3 g/dL Globulin 2.8 g/dL Bilirubin, Total 0.3 mg/dL ALT (SGPT) 28 U/L AST (SGOT) 24 U/L Alkaline Phosphatase 116 IU/L WBC 8.6 10 3/uL RBC 4.97 10 6/uL HGB 14.2 g/dL HCT 44.8 % MCV 90.1 fl MCH 28.6 pg MCHC 31.7 g/dL RDW 13.4 % Platelet Count 275 10 3/cmm MPV 9.6 fL Neutrophils 4.80 10 3/uL Lymphocytes 2.9 10 3/uL Monocytes 0.7 10 3/uL Eosinophils 0.1 10 3/uL Basophils 0.1 10 3/uL Neutrophil % 56.0 % Lymphocyte % 34.0 % Monocyte % 8.3 % Eosinophil % 0.7 % Basophils % 0.7 % NRBC % 0 % Problem List: 1. Grade 2 infiltrating adenocarcinoma of the right breast, stage IB (pT2, pN2, M0), ER/MA positive and HER-2/syeda nonamplified. She underwent lumpectomy/excision of right axillary lymph node on 03/08/15 followed by reexcision lumpectomy on 03/22/15 and right low axillary dissection on 04/12/2015. 2. Vitamin D deficiency. 3. She has a significant family history which includes melanoma involving two first degree relatives and breast cancer involving one first degree relative. Problems Addressed with this Encounter and Plan: 1. Patient with grade 2 infiltrating adenocarcinoma of the right breast, stage IB (pT2, pN2, M0), ER/MA positive and HER-2/syeda nonamplified. She underwent lumpectomy/excision of right axillary lymph node on 03/08/15 followed by reexcision lumpectomy on 03/22/15 and right low axillary dissection on 04/12/2015. She was given adjuvant chemotherapy with dose dense Adriamycin/cyclophosphamide followed by weekly Taxol. Due to worsening neuropathy, the Taxol portion of her treatment was stopped after 8 weekly infusions, completed in August 2015. She then underwent radiation to the right breast, completed on 12/24/2015 to a total dose of 6040 cGy. Adjuvant hormonal therapy with anastrozole 1 mg daily began in January 2016. In January 2017 her adjuvant hormonal therapy was changed to exemestane 25 mg daily due to increased fatigue and musculoskeletal pain. She tolerated the exemestane very poorly, and it was stopped within 2 months. In December 2017 she began further as hormonal therapy with tamoxifen 20 mg daily, which she also tolerated poorly. As of September 2018 she has agreed to restart anastrozole 1 mg daily and during subsequent follow-up she was able to tolerate it with acceptable toxicity. As of her follow-up visit in March 2021 she had completed 5 years of adjuvant hormonal therapy with no evidence of recurrence of the breast cancer. She was tolerating the anastrozole with acceptable side effects, and she opted to continue with extended adjuvant therapy. Since then she has continued to have some fatigue and some musculoskeletal pain with the anastrozole, but it is tolerable. Overall, she appears to be doing well clinically. She continues treatment with anastrozole 1 mg daily. She will be scheduled for a follow-up visit in 1 year. 2. Vitamin D deficiency. Her vitamin D level is a little low again. She continues her vitamin D supplementation. Signed By: Lenard Rod M.D. <<Signature on File>>
== END 2021-11-06 10:30 | disposition home or self-care (01) ==
PROVIDERS: PCP Family Medicine; Visit Provider Internal Medicine Medical Oncology
DX: Z85.3 Personal history of malignant neoplasm of breast (principal); E55.9 Vitamin D deficiency, unspecified; R00.0 Tachycardia, unspecified; Z79.899 Other long term (current) drug therapy
CPT/HCPCS: 36415; 80053; 82306; 84443; 85025; 99214

== ENCOUNTER 2022-07-25 15:29 | Outpatient (CLI) | payer MEDICARE, OTHER, SELFPAY ==
--- NOTE | 2022-07-25 15:37 | MM_ITS ---
WS: [id number] BILATERAL 3D TOMOSYNTHESIS DIGITAL DIAGNOSTIC MAMMOGRAPHY WITH CAD CLINICAL INFORMATION: history of breast cancer HISTORY: Diagnostic mammogram. No current complaints. COMPARISON: 2020 TECHNIQUE: Bilateral CC MLO and ML views. FINDINGS: Scattered fibroglandular densities bilaterally. History of prior RIGHT lobectomy. Volume loss RIGHT b reast with parenchymal scarring. Treatment-related changes RIGHT breast with trabecular thickening. O void asymmetric nodule upper outer RIGHT breast measuring 8 mm appears new or more prominent compared to previous. Recommend RIGHT breast diagnostic mammography with spot compression views and ultrasoun d for further evaluation. LEFT breast is unchanged. MM/[id number] IMPRESSION: BI-RADS: 0-Incomplete: Need additional imaging evaluation FOLLOW UP: Need Additional Imaging Recommend RIGHT breast diagnostic mammography and ultrasound for further evalua tion.
== END 2022-07-25 15:30 | disposition home or self-care (01) ==
LOC: RAD 15:32
PROVIDERS: PCP Family Medicine; Visit Provider Internal Medicine Medical Oncology
DX: Z85.3 Personal history of malignant neoplasm of breast (principal)
CPT/HCPCS: 77062; G0279

== ENCOUNTER 2022-08-18 14:28 | Outpatient (CLI) | payer MEDICARE, OTHER, SELFPAY ==
--- NOTE | 2022-08-18 14:42 | MM_ITS ---
WS: [id number] RIGHT 3D TOMOSYNTHESIS DIGITAL MAMMOGRAPHY WITH CAD CLINICAL INFORMATION: ABNORMAL MAMMO HISTORY: Extra views COMPARISON: 2021 TECHNIQUE: 3 views of the right breast were obtained. FINDINGS: Scattered fibroglandular densities of the right breast. History of prior RIGHT lumpectomy with volume loss RIGHT breast. Treatment-related changes RIGHT breast with trabecular thickening. Stable ovoid a symmetric nodule upper outer RIGHT breast measuring 8 mm is again seen. Ultrasound described below. ULTRASOUND BREAST RIGHT TECHNIQUE: Ultrasound right breast focused area of concern. CLINICAL INFORMATION: ABNORMAL MAMMO COMPARISON: None. FINDINGS: Ultrasound RIGHT breast at the 9 to 12:00 position. There is a small lymph node with preserved fatty hilum at the 10:00 position 4 cm from the nipple measuring 5 x 6 x 4.5 mm likely corresponding to the mammographic findings. This has a benign appearance. No other suspicious abnormalities. MM/[id number] IMPRESSION: BI-RADS: 2-Benign FOLLOW UP: 1 Year Follow-up Recommend return to annual diagnostic mammography.
== END 2022-08-18 14:29 | disposition home or self-care (01) ==
LOC: RAD 14:29
PROVIDERS: PCP Family Medicine; Visit Provider Internal Medicine Medical Oncology
DX: C50.411 Malignant neoplasm of upper-outer quadrant of right female breast (principal)
CPT/HCPCS: 76642; 77061; G0279

== ENCOUNTER 2022-11-06 11:27 | Oncology outpatient (recurring) (ONCR) | payer MEDICARE, OTHER, SELFPAY ==
[2022-11-06 12:23] LABS: Basophils # 0.1 10^3/uL (0.0-0.1); Basophils % 0.6 %; Eosinophils % 0.4 %; Hematocrit 43.8 % (37.0-47.0); Hemoglobin 13.7 g/dL (11.5-15.3); Lymphocytes # 3.2 10^3/uL (0.8-4.8); Lymphocytes % 33.8 %; Mean Corpuscular HGB Conc 31.3 g/dL (30.0-36.0); Mean Corpuscular Hemoglobin 28.1 pg (28.0-34.0); Mean Corpuscular Volume 89.9 fl (81-99); Mean Platelet Volume 9.6 fL (7.4-10.4); Monocytes # 0.8 10^3/uL (0.2-0.9); Monocytes % 8.5 %; Neutrophils # 5.23 10^3/uL (1.8-7.7); Neutrophils % 56.3 %; Nucleated Red Blood Cells % 0 %; Platelet Count 276 10^3/cmm (130-400); Red Blood Count 4.87 10^6/uL (4.1-5.3); Red Cell Distribution Width 13.8 % (12.1-15.1); White Blood Count 9.3 10^3/uL (4.0-10.0)
[2022-11-06 12:40] LABS: Alanine Aminotransferase 17 U/L (0-33); Alkaline Phosphatase 109 U/L (35-105); Anion Gap 16.3 (5-19); Aspartate Amino Transferase 19 U/L (0-32); Blood Urea Nitrogen 14 mg/dL (8-23); Calcium 8.9 mg/dL (8.5-10.5); Carbon Dioxide 28 mmol/L (22-29); Chloride 104 mmol/L (98-107); Globulin 3.3 g/dL (1.3-4.6); Glomerular Filtration Rate 71.3 mL/min (90-130); Glucose 105 mg/dL (65-115); Osmolality Calculated 299 mOsm/kg (285-295); Potassium 4.3 mmol/L (3.5-5.1); Sodium 144 mmol/L (136-145); Total Bilirubin 0.3 mg/dL (0.15-1.2); Total Protein 7.3 g/dL (6.6-8.7)
[2022-11-06 12:56] LABS: 25 Hydroxy Vitamin D 20 ng/mL (30-100)
== END 2022-11-07 23:59 | disposition home or self-care (01) ==
PROVIDERS: PCP Family Medicine; Visit Provider Nurse Practitioner Family
DX: C50.811 Malignant neoplasm of overlapping sites of right female breast (principal); Z17.0 Estrogen receptor positive status [ER+]; E55.9 Vitamin D deficiency, unspecified; R53.83 Other fatigue; M85.88 Other specified disorders of bone density and structure, other site; Z79.811 Long term (current) use of aromatase inhibitors; Z79.899 Other long term (current) drug therapy
CPT/HCPCS: 36415; 80053; 82306; 85025; 99213; 99214

== ENCOUNTER → 2023-02-16 15:00 | Outpatient (BNVA) | payer MEDICARE, OTHER, SELFPAY | PROVIDERS: PCP Family Medicine; Visit Provider Nurse Practitioner Family | DX: R50.9 Fever, unspecified (principal) | CPT/HCPCS: 80053; 81000; 81003; 85025; 85651; 87086 ==

== ENCOUNTER → 2023-03-27 10:17 | Outpatient (BNVA) | payer MEDICARE, OTHER, SELFPAY | PROVIDERS: PCP Family Medicine; Visit Provider Nurse Practitioner Family | DX: R89.9 Unspecified abnormal finding in specimens from other organs, systems and tissues (principal) | CPT/HCPCS: 80048 ==

== ENCOUNTER 2023-05-20 10:51 | Oncology outpatient (recurring) (ONCR) | payer MEDICARE, OTHER, SELFPAY ==
[2023-05-20 10:59] VITALS: BP 146/79; PULSE 105; RESP 16; TEMP 36.6; O2SAT 95
[2023-05-20 11:10] LABS: Basophils % 0.5 %; Eosinophils # 0.1 10^3/uL (0.0-0.8); Eosinophils % 0.6 %; Hematocrit 43.2 % (36-47); Lymphocytes # 3.1 10^3/uL (0.8-4.8); Lymphocytes % 36.1 %; Mean Corpuscular HGB Conc 32.2 g/dL (30-55); Mean Corpuscular Hemoglobin 28.6 pg (27-33); Mean Corpuscular Volume 88.9 fl (85-98); Mean Platelet Volume 9.5 fL (7.4-10.4); Monocytes # 0.6 10^3/uL (0.2-0.9); Monocytes % 6.6 %; Nucleated Red Blood Cells % 0 %; Platelet Count 292 10^3/cmm (157-399); Red Blood Count 4.86 10^6/uL (3.85-5.65); Red Cell Distribution Width 14.4 % (12.1-15.1); White Blood Count 8.58 10^3/uL (3.29-11.43)
[2023-05-20 11:31] LABS: Alanine Aminotransferase 21 U/L (0-33); Alkaline Phosphatase 111 U/L (35-105); Aspartate Amino Transferase 24 U/L (0-32); Blood Urea Nitrogen 12 mg/dL (8-23); Calcium 9.2 mg/dL (8.5-10.5); Carbon Dioxide 26 mmol/L (22-29); Chloride 102 mmol/L (98-107); Globulin 3.3 g/dL (1.3-4.6); Glomerular Filtration Rate 49.4 mL/min (90-130); Glucose 137 mg/dL (65-115); Osmolality Calculated 290 mOsm/kg (285-295); Sodium 139 mmol/L (136-145); Total Bilirubin 0.4 mg/dL (0.15-1.2); Total Protein 7.3 g/dL (6.6-8.7)
[2023-05-20 12:18] LABS: Creatinine Clr Calc Pharmacy 53.2353
[2023-05-20 13:40] LABS: 25 Hydroxy Vitamin D 37 ng/mL (30-100)
[2023-05-20 14:07] LABS: Free T4 Free Thyroxine 1.15 ng/dL (0.82-1.77)
== END 2023-06-09 23:59 | disposition home or self-care (01) ==
PROVIDERS: Nurse Practitioner Family; PCP Family Medicine; Visit Provider Nurse Practitioner Family
DX: C50.411 Malignant neoplasm of upper-outer quadrant of right female breast (principal); R53.0 Neoplastic (malignant) related fatigue; Z17.0 Estrogen receptor positive status [ER+]; E55.9 Vitamin D deficiency, unspecified
CPT/HCPCS: 36415; 80053; 82306; 84439; 84443; 85025; 99214

== ENCOUNTER 2023-05-27 14:47 | Outpatient (CLI) | payer MEDICARE, OTHER, SELFPAY ==
--- NOTE | 2023-05-27 15:00 | XR_ITS ---
WS: [id number] SCREENING DEXA SCAN [facility] CLINICAL INFORMATION: postmenopause/AI use COMPARISON: 2019 FINDINGS: The L1-L4 bone mineral density measures 1.225 g/cm2. This corresponds to a T score score of 0.4 and Z score of 1.6. Left femoral neck bone mineral density measures 1.033 g/cm2. This corresponds to a T score of 0.2 and Z score of 1.3. Right femoral neck bone mineral density measures 1.055 g/cm2. This corresponds to a T score 0.4of and Z score of 1.5. Mean femoral neck bone mineral density measures 1.044 g/cm2. This corresponds to a T score of 0.3 and Z score of 1.4. IMPRESSION: Normal bone mineralization. Patient's FRAX calculated 10 year probability for major osteoporotic fracture is 8.0% and osteoporoti c hip fracture is 0.6%. Bone mineral density lumbar spine increased 5.6% Bone mineral density femoral necks decreased -1.8%
== END 2023-05-27 14:48 | disposition home or self-care (01) ==
PROVIDERS: PCP Family Medicine; Visit Provider Nurse Practitioner Family
DX: Z13.820 Encounter for screening for osteoporosis (principal); Z78.0 Asymptomatic menopausal state; E55.9 Vitamin D deficiency, unspecified; Z92.21 Personal history of antineoplastic chemotherapy
CPT/HCPCS: 77080

== ENCOUNTER → 2023-06-29 16:38 | Outpatient (BNVA) | payer MEDICARE, OTHER, SELFPAY | PROVIDERS: PCP Family Medicine; Visit Provider Nurse Practitioner Family | DX: R50.9 Fever, unspecified (principal); R51.9 Headache, unspecified; R63.4 Abnormal weight loss; M31.6 Other giant cell arteritis; M79.601 Pain in right arm; J32.9 Chronic sinusitis, unspecified | CPT/HCPCS: 80053; 84443; 85025; 85651; 86038; 86140; 86431 ==

== ENCOUNTER → 2023-07-10 09:55 | Outpatient (BNVA) | payer MEDICARE, OTHER, SELFPAY | PROVIDERS: PCP Family Medicine; Visit Provider Nurse Practitioner Family | DX: M79.601 Pain in right arm (principal) | CPT/HCPCS: 73060 ==

== ENCOUNTER 2023-07-24 17:53 | Emergency (ER) | payer MEDICARE, OTHER, SELFPAY ==
[2023-07-24 17:59] VITALS: BP 127/74; PULSE 96; RESP 18; TEMP 36.4; O2SAT 97; BMI 25.0
[2023-07-24 18:40] LABS: Basophils % 0.4 %; Eosinophils % 0.2 %; Hematocrit 42.5 % (36-47); Lymphocytes % 35.5 %; Mean Corpuscular HGB Conc 31.5 g/dL (30-55); Mean Corpuscular Hemoglobin 28.7 pg (27-33); Mean Platelet Volume 9.3 fL (7.4-10.4); Monocytes # 0.8 10^3/uL (0.2-0.9); Monocytes % 9.4 %; Neutrophils # 4.53 10^3/uL (1.8-7.7); Neutrophils % 54.3 %; Nucleated Red Blood Cells % 0 %; Platelet Count 214 10^3/cmm (157-399); Red Blood Count 4.67 10^6/uL (3.85-5.65); Red Cell Distribution Width 14.6 % (12.1-15.1); White Blood Count 8.34 10^3/uL (3.29-11.43)
[2023-07-24 18:43] LABS: Erythrocyte Sedimentation Rate 20 mm/hr (0-15)
[2023-07-24] MEDS: methylPREDNISolone sod succ 125 mg/2 mL INJ 60 MG IVP (18:59)
[2023-07-24 19:00] LABS: Alanine Aminotransferase 21 U/L (0-33); Albumin Level 3.9 g/dL (3.5-5.2); Alkaline Phosphatase 136 U/L (35-105); Anion Gap 13.7 (5-19); Aspartate Amino Transferase 31 U/L (0-32); Blood Urea Nitrogen 11 mg/dL (8-23); C Reactive Protein 8.2 mg/L (0.0-4.9); Calcium 9.3 mg/dL (8.5-10.5); Carbon Dioxide 28 mmol/L (22-29); Chloride 101 mmol/L (98-107); Globulin 3.2 g/dL (1.3-4.6); Glomerular Filtration Rate 55.1 mL/min (90-130); Glucose 102 mg/dL (65-115); Osmolality Calculated 288 mOsm/kg (285-295); Potassium 3.7 mmol/L (3.5-5.1); Sodium 139 mmol/L (136-145); Total Bilirubin 0.4 mg/dL (0.15-1.2); Total Protein 7.1 g/dL (6.6-8.7)
[2023-07-24] MEDS: ketorolac 30 mg/mL INJ IVP (19:02)
[2023-07-24 19:03] LABS: Creatinine Clr Calc Pharmacy 56.0915
--- NOTE | 2023-07-24 19:11 | W.ED.HA ---
HPI - Headache General: Chief Complaint: Headache Stated Complaint: neuro issue,dr parrish History of Present Illness: 67-year-old female presents to the emergency department with her . Patient states that she has a headache on her right side that is a 9 out of 10. She states that she has a history of concern for temporal arteritis and that she is legally blind in her left eye. She states that she does have an appointment with her neurologist Dr. Keating on September 02. She states she also has a history of breast cancer with a right mastectomy and sees Dr. Rod for oncology. She states that she feels like she has been doing well since her mastectomy with the exception of intermittent headaches. Her endorses that he feels like her mentation has significantly been slowed and that she is having trouble with her memory. She denies recent trauma or injury. Review of Systems General: Reports: 10 or more systems reviewed and unremarkable except in HPI and below Neuro: Reports: headache(s) PFSH ED PFSH: Medical History History of breast cancer Malignant neoplasm of upper-outer quadrant of right female breast Surgical History History of cholecystectomy History of lumpectomy of right breast Social History Smoking and tobacco/nicotine status: never used tobacco/nicotine Alcohol intake: never Substance/Drug Use: never Physical Exam Narrative: EXAM NARRATIVE: Constitutional: the patient appears well nourished and with normal development. Vital signs reviewed as documented. HENMT: Normocephalic, atraumatic. Extermal ears with normal appearance without drainage. Nose without drainage, normal appearance. Mucus membranes moist. Neck is supple, No jugular venous distension, trachea is midline, no appreciable carotid bruits. No lymphadenopathy. No meningeal signs. Flexion, extension and lateral rotation is without pain. Eyes: Pupils are equal, visual hernandez and vision test as documented by nursing staff no scleral icterus. Extra-ocular movement are intact. Thorax is symmetrical and with equal rise and fall with respirations. Resp: Lungs are clear to auscultation. No wheezes, rales, crackles or ronchi at present. Cardio: Regular rate and rhythm. Positive S1, S2. No appreciable murmurs, rubs or gallops. GI: Abdominal exam reveals normal bowel sounds to all quadrants. No organomegaly. No obvious palpable masses noted. No hepatomegally appreciated. Soft, nontender to palpation. Extremity: Extremities are non-edematous and both femoral and pedal pulses are 2+ and equal bilaterally. Moves all extremities well, sensation in all extremities. Neuro: Alert and oriented x4, person, place, time and situation. Cranial nerves II through XII are grossly intact, there is no focal neurological deficits that I can appreciate at present. Motor strength in the upper and lower extremities are equal and bilateral 5/5. Psych: Cooperative, calm, normal thought process, appropriate judgment. Skin: No lesions, rashes. No gross abnormalities noted. Back: Symmetrical, no obvious deformity, No CVA tenderness Course Vital Signs: Vital signs: Vital Signs Temperature 97.6 F 07/24/23 17:59 Pulse Rate 96 07/24/23 17:59 Respiratory Rate 18 07/24/23 17:59 Blood Pressure 127/74 07/24/23 17:59 Pulse Oximetry 97 07/24/23 17:59 Oxygen Delivery Me thod Room Air 07/24/23 17:59 MDM - Headache Medical Decision Making Physical exam completed and documented, I did provide the patient Solu-Medrol as well as pain medication I had an extensive discussion with the patient after obtaining her CT scan of her head and advised her of the importance to follow-up with Dr. Rod and to call his office on the next business day to make an immediate follow-up appointment. I will provide the patient written prescription for Decadron. Medical Records I reviewed the patient's medical records. Lab Data I reviewed the patient's lab results. 07/24/23 18:32 07/24/23 18:[address] 07/24/23 19:15 IMPRESSION: 1. Extensive calvarial osseous metastatic disease with right frontal and sphenoid expansile soft tissue masses exerting mass effect on subjacent sulci. 2. Associated prominent vasogenic edema in the right temporoparietal lobe with right cerebral sulcal effacement and 2mm right to left midline shift. ADDENDUM: 07/24/232055 THIS REPORT CONTAINS FINDINGS THAT MAY BE CRITICAL TO PATIENT CARE. The findings were verbally communicated via telephone conference with MUSTAPHA Sosa at 8:54 PM [employer] on 07/24/2023. The findings were acknowledged and understood. Laboratory Results WBC 8.34 10^3/uL (3.29-11.43) 07/24/23 18:32 RBC 4.67 10^6/uL (3.85-5.65) 07/24/23 18:32 Hgb 13.40 g/dL (11.27-16.99) 07/24/23 18:32 Hct 42.5 % (36-47) 07/24/23 18:32 MCV 91.0 fl (85-98) 07/24/23 18:32 MCH 28.7 pg (27-33) 07/24/23 18:32 MCHC 31.5 g/dL (30-55) 07/24/23 18:32 RDW 14.6 % (12.1-15.1) 07/24/23 18:32 Plt Count 214 10^3/cmm (157-399) 07/24/23 18: MPV 9.3 fL (7.4-10.4) 07/24/23 18:32 Neut % (Auto) 54.3 % 07/24/23 18:32 Lymph % (Auto) 35.5 % 07/24/23 18:32 [place] % (Auto) 9.4 % 07/24/23 18:32 Eos % (Auto) 0.2 % 07/24/23 18:32 Baso % (Auto) 0.4 % 07/24/23 18:32 Neut # (Auto) 4.53 10^3/uL (1.8-7.7) 07/24/23 18:32 Lymph # (Auto) 3.0 10^3/uL (0.8-4.8) 07/24/23 18:32 [place] # (Auto) 0.8 10^3/uL (0.2-0.9) 07/24/23 18:32 Eos # (Auto) 0.0 10^3/uL (0.0-0.8) 07/24/23 18:32 Baso # (Auto) 0.0 10^3/uL (0.0-0.1) 07/24/23 18:32 Nucleated RBC % (auto) 0 % 07/24/23 18:32 Nucleated RBCs # 0.0 /100WBC 07/24/23 18:32 ESR 20 mm/hr (0-15) H 07/24/23 18:32 Sodium 139 mmol/L (136-145) 07/24/23 18:32 Potassium 3.7 mmol/L (3.5-5.1) 07/24/23 18:32 Chloride 101 mmol/L (98-107) 07/24/23 18:32 Carbon Dioxide 28 mmol/L (22-29) 07/24/23 18:32 Anion Gap 13.7 (5-19) 07/24/23 18:32 BUN 11 mg/dL (8-23) 07/24/23 18:32 Creatinine 1.0 mg/dL (0.5-0.9) H 07/24/23 18:32 GFR Calculation 55.1 mL/min (90-130) L 07/24/23 18:32 Glucose 102 mg/dL (65-115) 07/24/23 18:32 Calculated Osmolality 288 mOsm/kg (285-295) 07/24/23 18:32 Calcium 9.3 mg/dL (8.5-10.5) 07/24/23 18:32 Total Bilirubin 0.4 mg/dL (0.15-1.2) 07/24/23 18:32 AST 31 U/L (0-32) 07/24/23 18:32 ALT 21 U/L (0-33) 07/24/23 18:32 Alkaline Phosphatase 136 U/L (35-105) H 07/24/23 18:32 C-Reactive Protein 8.2 mg/L (0.0-4.9) H 07/24/23 18:32 Total Protein 7.1 g/dL (6.6-8.7) 07/24/23 18:32 Albumin 3.9 g/dL (3.5-5.2) 07/24/23 18:32 Globulin 3.2 g/dL (1.3-4.6) 07/24/23 18:32 All radiology interpretation(s) finalized by discharge Discharge Plan Discharge Patient Disposition: Home Clinical Impression: Vasogenic brain edema Headache Qualifiers: Headache type: unspecified Headache chronicity pattern: acute headache Intractability: not intractable Qualified Code(s): R51.9 - Headache, unspecified Brain malignancy Qualifiers: Malignant neoplasm of brain location: frontal lobe Qualified Code(s): 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 Condition: Stable Prescriptions: New dexamethasone 6 mg tablet 6 mg PO DAILY Qty: 20 0RF No Action loratadine [Claritin] 10 mg tablet 10 mg PO DAILY ergocalciferol (vitamin D2) [Vitamin D2] 1,250 mcg (50,000 unit) capsule 1,250 mcg PO .monthly Qty: 1 6RF prednisone 20 mg tablet See Rx Instructions PO DAILY Qty: 20 0RF Rx Instructions: Days 1-7: 2 tablets Days 8-9: 1 tablet Days 11-12: 1/2 tablet cefdinir 300 mg capsule 300 mg PO BID 10 Days Qty: 20 0RF Discharge Orders: Discharge ED (Routine); Ordered 07/24/23 Ordered By: Mustapha Mandel Referrals: Lenard Rod MD [Hospitalist] - Sandi Tran MD [Primary Care Provider] - Discharge Diet: Advance as tolerated Discharge Activity: Resume usual activity Patient Instructions: Opioid Safety, Pain Management Activity Restrictions/Additional Instructions: Activity Restrictions/Additional Instructions: Thank you for choosing [facility] for your healthcare needs today. Please realize that you were seen in the Emergency Department and that we are providing you with an emergency medical screening exam and this may not be a complete and all inclusive of all the testing and or medical work-up that you may need to determine your ailment or severity of your illness. It is very important that you follow-up as instructed with your Primary care provider or Specialist for additional evaluation and to discuss your medical treatment plan. You may return to the Emergency Department should you have concerns or if your condition changes or worsens in any way. Call Dr. Rod's office on the next business day to make an immediate follow-up appointment for additional evaluation treatment and care and to discuss the findings of your CT scan of your head. Coding Level of Care Code ED [employer] for [employer]
--- NOTE | 2023-07-24 19:15 | CTR_ITS ---
PROCEDURE INFORMATION: Exam: CT Head With Contrast Exam date and time: 07/24/2023 7:47 PM Age: 67 years old Clinical indication: Pain; Headache; Patient HX: C/O RT sided DEMARCO x 1 week. Diagnosed with temporal arteritis. History of breast cancer. TECHNIQUE: Imaging protocol: Computed tomography of the head with intravenous contrast. Radiation optimization: All CT scans at this facility use at least one of these dose optimization techniques: automated exposure control; mA and/or kV adjustment per patient size (includes targeted exams where dose is matched to clinical indication); or iterative reconstruction. Contrast material: OMNI 350; Contrast volume: 100 ml; Contrast route: INTRAVENOUS (IV); REPORTING DATA: Count of CT and Cardiac NM exams in prior 12 months: This patient has received 0 known CTs and 0 known cardiac nuclear medicine studies in the 12 months prior to the current study. COMPARISON: No relevant prior studies available. RADIATION DOSE METRICS: Total DLP (mGy-cm): 2306.98 FINDINGS: Brain: Prominent vasogenic edema in the right temporoparietal lobe. Below described large calvarial lesions exert mass effect on subjacent sulci. Diffuse right sulcal effacement. Mild 2mm right to left midline shift. Assessment for hemorrhage limited in setting of IV contrast. Cerebral ventricles: Mild right lateral ventricle effacement. No ventriculomegaly. Bones/joints: Osteolytic mass associated with the right frontal calvarium measuring 3.7 cm. Osteolytic mass centered in the right sphenoid wing measuring 3.2 cm. Additional smaller osteolytic lesions throughout the calvarium. Paranasal sinuses: Visualized sinuses are unremarkable. No fluid levels. Mastoid air cells: Visualized mastoid air cells are well aerated. Soft tissues: Unremarkable. CT/CT head w con [id number] IMPRESSION: 1. Extensive calvarial osseous metastatic disease with right frontal and sphenoid expansile soft tissue masses exerting mass effect on subjacent sulci. 2. Associated prominent vasogenic edema in the right temporoparietal lobe with right cerebral sulcal effacement and 2mm right to left midline shift.
[2023-07-24] MEDS: iohexol 350 mg/mL 500 mL Btl (per mL) IV (19:51)
[2023-07-24] MEDS: diphenhydrAMINE 50 mg/mL SDV 1mL IM (21:06)
--- NOTE | 2023-07-24 21:26 | PC.NURSE ---
Vision Test: Left Eye No Glasses: unable to test Right Eye No Glasses: 20/50 Both Eyes No Glasses: 20/40 Left Eye with Glasses: unable to test Right Eye with Glasses: 20/40 Both Eyes with Glasses: 20/40 pt states that she is legally blind in her left eye and is unable to read the vision chart.
== END 2023-07-24 21:17 | disposition home or self-care (01) ==
PROVIDERS: Emergency Provider Internal Medicine; PCP Family Medicine
DX: R51.9 Headache, unspecified (principal); G93.6 Cerebral edema; Z71.1 Person with feared health complaint in whom no diagnosis is made; Z85.3 Personal history of malignant neoplasm of breast
CPT/HCPCS: 36415; 70460; 80053; 85025; 85651; 86140; 96372; 96374; 96375; 99285; J1200; J1885; J2930; Q9967

== ENCOUNTER 2023-08-06 09:09 | Outpatient (CLI) | payer MEDICARE, OTHER, SELFPAY ==
--- NOTE | 2023-08-06 09:30 | NM_ITS ---
WS: [id number] NUCLEAR MEDICINE BONE SCAN Radiopharmaceutical: 24.6 mCi Tc-99m MDP mCi IV Injection site: Antecubital Postinjection imaging delay: 1 hr CLINICAL INFORMATION: R93.6 - Abnormal findings on diagnostic imaging of limbs FINDINGS: Bone lesions: Diffuse innumerable foci of bony uptake involving the axial and appendicular skeleton. Diffuse areas of uptake throughout the spine, proximal femurs extending into the mid to distal femora l shafts and RIGHT greater than LEFT humerus. Diffuse intense areas of activity involving the bony ca lvarium. Prominent area of activity involving the distal RIGHT humerus. Innumerable punctate foci thr oughout the visualized ribs bilaterally. Diffuse areas of bony uptake involving the bony pelvis and h ips bilaterally Soft tissue contours: Normal. Kidneys: Normal. Other findings: None. IMPRESSION: 1. Diffuse innumerable foci of metastatic disease involving the calvarium and throughout the axial a nd appendicular skeleton. 2. Focal area of intense activity involving the RIGHT distal humerus corresponding to the lytic lesi on seen on the recent radiograph. 3. Intense innumerable areas of calvarial uptake corresponding to the metastatic lesions seen on the recent head CT
== END 2023-08-06 09:10 | disposition home or self-care (01) ==
PROVIDERS: PCP Family Medicine; Visit Provider Nurse Practitioner Family
DX: C79.51 Secondary malignant neoplasm of bone (principal); R93.6 Abnormal findings on diagnostic imaging of limbs
CPT/HCPCS: 78306; A9561

== ENCOUNTER 2023-08-26 13:07 | Outpatient (CLI) | payer MEDICARE, OTHER, SELFPAY ==
--- NOTE | 2023-08-26 13:20 | MM_ITS ---
WS: [id number] BILATERAL 3D TOMOSYNTHESIS DIGITAL DIAGNOSTIC MAMMOGRAPHY WITH CAD CLINICAL INFORMATION: ANNUAL - HX BR CA HISTORY: History of RIGHT breast cancer with lumpectomy, radiation, and chemo. COMPARISON: 2021 and 2022 TECHNIQUE: Bilateral CC, MLO, and ML views. FINDINGS: Scattered fibroglandular densities bilaterally. Prior lumpectomy RIGHT breast with volume loss. Treat ment-related changes RIGHT breast with trabecular thickening. Previously described ovoid asymmetric d ensity upper outer RIGHT breast previously evaluated and shown to represent an incidental lymph node Incidental punctate calcifications LEFT breast.. No suspicious focal mass, asymmetry, calcifications, or architectural distortion. No evidence of adam gnancy. IMPRESSION: MM/[place] [id number] BI-RADS: 2-Benign FOLLOW UP: 1 Year Follow-up Recommend return to annual diagnostic mammography.
== END 2023-08-26 13:08 | disposition home or self-care (01) ==
LOC: RAD 13:08
PROVIDERS: PCP Family Medicine; Visit Provider Nurse Practitioner Family
DX: Z85.3 Personal history of malignant neoplasm of breast (principal); Z92.21 Personal history of antineoplastic chemotherapy; Z92.3 Personal history of irradiation; Z98.890 Other specified postprocedural states
CPT/HCPCS: 77062; G0279

== ENCOUNTER 2023-08-27 14:21 | Oncology outpatient (recurring) (ONCR) | payer MEDICARE, OTHER, SELFPAY ==
[2023-08-11 12:10] VITALS: BP 107/66; PULSE 90; RESP 16; TEMP 36.6; O2SAT 96
[2023-08-11 12:18] LABS: Basophils % 0.1 %; Eosinophils % 0.1 %; Hematocrit 43.3 % (36-47); Lymphocytes # 2.1 10^3/uL (0.8-4.8); Lymphocytes % 13.7 %; Mean Corpuscular HGB Conc 32.8 g/dL (30-55); Mean Corpuscular Hemoglobin 29.2 pg (27-33); Mean Corpuscular Volume 89.1 fl (85-98); Mean Platelet Volume 9.5 fL (7.4-10.4); Monocytes % 6.5 %; Neutrophils # 12.08 10^3/uL (1.8-7.7); Neutrophils % 78.3 %; Nucleated Red Blood Cells % 0 %; Platelet Count 203 10^3/cmm (157-399); Red Blood Count 4.86 10^6/uL (3.85-5.65); Red Cell Distribution Width 15.1 % (12.1-15.1); White Blood Count 15.43 10^3/uL (3.29-11.43)
[2023-08-11 12:46] LABS: Alanine Aminotransferase 52 U/L (0-33); Albumin Level 3.4 g/dL (3.5-5.2); Alkaline Phosphatase 114 U/L (35-105); Blood Urea Nitrogen 23 mg/dL (8-23); CA 15-3 24.6 U/mL (0-25); Calcium 8.7 mg/dL (8.5-10.5); Carbon Dioxide 24 mmol/L (22-29); Chloride 99 mmol/L (98-107); Globulin 2.7 g/dL (1.3-4.6); Glomerular Filtration Rate 71.3 mL/min (90-130); Glucose 153 mg/dL (65-115); Osmolality Calculated 285 mOsm/kg (285-295); Sodium 134 mmol/L (136-145); Total Bilirubin 0.4 mg/dL (0.15-1.2); Total Protein 6.1 g/dL (6.6-8.7)
[2023-08-11 12:49] LABS: Anion Gap 14.8 (5-19); Aspartate Amino Transferase 22 U/L (0-32); Potassium 3.8 mmol/L (3.5-5.1)
--- NOTE | 2023-08-17 13:47 | N.ONRAD NP_ITS ---
Radiation Oncology New Patient Visit Patient: Kyler Dugan MR#: [id number] : 1955> Age: 67> Sex: Female> Dictated by: Dr. Carlyn Connelly Date of Service: 08/17/2023 Referring Physician(s) : Dr. Jaison Mariscal Diagnosis: Stage IV breast cancer with bony metastasis Z17.0 - estrogen receptor positive status [er+], Diagnosed 01/02/2016 (active) and C50.411 - malignant neoplasm of upper-outer quadrant of right female breast, Diagnosed 03/30/2015 (active), stage iiia, t2, pn2, m0, g2. Radiotherapy to date: Course: Course 1, Treatment Site: RT BREAST, Ref. ID: RT BREAST, Energy: 6X, Dose/Fx (cGy): 180, #Fx: / 28, Dose Correction (cGy): 0, Total Dose (cGy): 5,040, Start Date: 11/06/2015, End Date: 12/17/2015, Elapsed Days: 41 Treatment Site: IM, Ref. ID: IM NODES, Energy: 12E, Dose/Fx (cGy): 90, #Fx: , Dose Correction (cGy): 0, Total Dose (cGy): 2,520, Start Date: 11/06/2015, End Date: 12/17/2015, Elapsed Days: 41 Treatment Site: RT SUPRACLAV, Ref. ID: RT SUPRACLAV, Energy: 15X/6X, Dose/Fx (cGy): 180, #Fx: 27 / 27, Dose Correction (cGy): 0, Total Dose (cGy): 4,860, Start Date: 11/06/2015, End Date: 12/14/2015, Elapsed Days: 38 Treatment Site: IM, Ref. ID: IM NODES, Energy: 9E, Dose/Fx (cGy): 90, #Fx: , Dose Correction (cGy): 0, Total Dose (cGy): 2,520, Start Date: 11/06/2015, End Date: 12/17/2015, Elapsed Days: 41 Treatment Site: RT BREAST BOOST, Ref. ID: RT BREAST BOOST, Energy: 16E, Dose/Fx (cGy): 200, #Fx: 5 / 5, Dose Correction (cGy): 0, Total Dose (cGy): 1,000, Start Date: 12/18/2015, End Date: 12/24/2015 Elapsed Days: 6Summary > No prior radiation therapy. Chief Complaint / History of Present Illness: Patient has been diagnosed with bony metastasis. She presented with right arm pain and then subsequent headaches. Both of these were found to be from bony metastasis. Her bone scan showed extensive disease throughout the skeletal system in the calvarium. No other disease was noted on a recent PET scan. She has become increasingly fatigued and weak. She is basically in bed most of the time. Here at the clinic she is in wheelchair. She has been placed on dexamethasone twice a day without apparent improvement. She is here today to discuss treatment to the calvarium and the humerus. Current Medications: cefdinir 300 mg PO BID 10 days dexamethasone 4 mg mg PO twice daily ergocalciferol (vitamin D2) (Vitamin D2) 1,250 mcg PO .monthly loratadine (Claritin) 10 mg PO DAILY prednisone Days 1-7: 2 tablets Days 8-9: 1 tablet Days 11-12: 1/2 tablet Allergies: No Known Allergies Medical History: Malignant neoplasm of upper-outer quadrant of right female breast Surgical History: History of lymph node dissection of right axilla (04/12/15), Low axillary lymph node dissection, Status post excisional biopsy (03/08/15), Excisional biopsy of right breast mass and of right axillary lymph node, History of lumpectomy of right breast (03/22/15), Reexcision lumpectomy of right breast, History of cholecystectomy Family History: Father is at age 87. Mother is at age 84. Brother is at age 55 having experienced melanoma. Sister is alive having experienced melanoma, and breast cancer. Paternal Grandmother is having experienced stomach cancer. Both parents reportedly of natural causes , father at age 87 and mother at age 84. She had a total of 9 brothers and sisters. One brother of melanoma at age 55. A 68-year-old sister has been treated for melanoma and for breast cancer. Her paternal grandmother had stomach cancer. Social History: Smoking and tobacco/nicotine status: never used tobacco/nicotine Alcohol intake: never Substance/Drug Use: never Current Complaints / Review of Systems: . She has pain through her head when she lays down. She has pain in her right arm. She also describes that she cannot lay flat on her back due to intractable nausea. Vital Signs: Performed on 08/17/2023 1:18 PM BMI - 24.308 kg/m2 (high), Height - 67 in, Weight - 155.2 lbs, Temperature - 96 f, Pulse - 98 /min, Respiration - 18 /min, O2 Sat - 96 %, Pain - 0, Fatigue - 0 and BP - 112/ 64 mm(hg)(/low). Physical Exam: General: Patient is alert and answers questions appropriately but it takes her considerable amount of time to do so as if she is in a fog. HEENT: Normocephalic atraumatic. Pupils are equal sclera clear extraocular muscles intact Lungs: Respiratory rate is regular nonlabored Cardiovascular: Regular rate and rhythm Abdomen: Soft and nonprotuberant Extremities: No lymphedema is noted in the upper extremities Skin: No ecchymoses or bruising was noted. Neurological: Alert and oriented x 3. She is too weak to walk through the clinic and therefore arise in a wheelchair. Her speech is within normal limits but she is very delayed in answering any questions. Performance Status: ECOG 3 Pathology: Primary, z17.0 - estrogen receptor positive status [er+], Diagnosed 01/02/2016 (active), Primary, c50.411 - malignant neoplasm of upper-outer quadrant of right female breast, Diagnosed 03/30/2015 (active) stage iiia, t2, pn2, m0, g2, Secondary, z78.0 - asymptomatic menopausal state, Diagnosed 02/20/2020 (active), Secondary, z79.811 - fdc (current) use of aromatase inhibitors, Diagnosed 07/2017 (active), Secondary, z92.21 - personal history of antineoplastic chemotherapy, Diagnosed 07/2017 (active), Secondary, z92.3 - personal history of irradiation, Diagnosed 07/2017 (active) and Secondary, z45.2 - portacath maintenance, Diagnosed 03/31/2016 (active). Lab: Imaging: See HPI Impression: Stage IV breast cancer with extensive bony metastasis, calvarial metastasis with subsequent underlying edema Plan: I reviewed with her today that the simulation process would be similar to what she had had done before. We talked about the daily treatment regiment. At this point she has some issues lying down so we will go ahead and start with her treatments on her side. Once she has had some benefit from the treatments then we would be able to add the treatment for her humerus once she can lay on her side. We talked about the benefit of treatment as well as the risks and side effects both acute and long-term. At this point both her and her have agreed to proceed and she will undergo simulation today and begin her treatments later this week. Will plan for 2-week course on the brain and a 1 week course on the humerus when she is able to lay flat. Signed by: 08/17/2023 1:45:22 PM <<Signature on File>> Time spent with patient:45 CPT Code: CPT Code:
[2023-08-20 09:22] VITALS: BP 107/70; PULSE 112; RESP 16; TEMP 36.7; O2SAT 96
[2023-08-20] MEDS: denosumab 120 mg SDV SUBCUT (09:40)
[2023-08-20] MEDS: fulvestrant 250 mg/5 mL Syringe 500 MG IM (09:43)
--- NOTE | 2023-08-25 15:17 | ONCRAD TMN_ITS ---
Radiation Oncology Weekly Treatment Management Patient: Kyler Dugan MR#: [id number] : 1955 Attending Physician: Dr. Carlyn Connelly Date of Service: 08/25/2023 Fractions: 4 out of 10 Referring Physician(s) : Dr. Jaison Mariscal Diagnosis: C79.51 - Secondary malignant neoplasm of bone, Diagnosed 08/17/2023 (Active) Z17.0 - Estrogen receptor positive status [ER+], Diagnosed 01/02/2016 (Active) C50.411 - Malignant neoplasm of upper-outer quadrant of right female breast, Diagnosed 03/30/2015 (Active) Stage IIIA, T2, pN2, M0, G2 Radiotherapy to date: Course: Brain 2023, Treatment Site: [id number], Ref. ID: [id number], Energy: 15X, Dose/Fx (cGy): 300, #Fx: 4 / 10, Dose Correction (cGy): 0, Total Dose (cGy): 1,200, Start Date: 08/20/2023, Elapsed Days: 5 Reason for visit: The patient is being seen today as part of their regularly scheduled weekly on treatment visits to assess for acute toxicities from radiotherapy. Review of Systems: She did say she was feeling poorly today. Her says she is pretty much is gone to bed after Thursday. He thought she was a little bit better over the weekend. Vital Signs: Performed on 08/25/2023 3:03 PM BMI - 23.932 kg/m2 (high), Height - 67 in, Weight - 152.8 lbs, Temperature - 97.8 f, Pulse - 89 /min, Respiration - 18 /min, O2 Sat - 96 %, Pain - 5, Fatigue - 5 and BP - 124/ 78 mm(hg). Physical Exam: Patient remains with a flat affect and minimal interaction Imaging: Radiation therapy imaging related to accurate target localization (i.e. KV, MV and CBCT) was reviewed. Appropriate changes, if any, were made to ensure treatment accuracy. Plan: We talked about continue with her treatments. Tomorrow be the last day to do the simulation on her arm before we would be able to finish it along with her other treatments. She has a mammogram first tomorrow and then will proceed with the simulation for her humerus. Otherwise continue with her treatments as planned Signed by: Dr. Carlyn Connelly 08/25/2023 3:16:16 PM
== END 2023-08-27 23:59 | disposition home or self-care (01) ==
PROVIDERS: Internal Medicine Medical Oncology; PCP Family Medicine; Visit Provider Radiology Radiation Oncology
DX: C50.411 Malignant neoplasm of upper-outer quadrant of right female breast (principal); R53.0 Neoplastic (malignant) related fatigue; Z17.0 Estrogen receptor positive status [ER+]; E55.9 Vitamin D deficiency, unspecified
CPT/HCPCS: 36415; 77280; 77290; 77295; 77300; 77334; 77336; 77387; 77412; 80053; 85025; 86300; 96372; 96402; 99024; 99205; 99215; J0897; J9395

== ENCOUNTER 2023-09-03 15:00 | Oncology outpatient (recurring) (ONCR) | payer MEDICARE, OTHER, SELFPAY ==
--- NOTE | 2023-09-01 15:29 | ONCRAD TMN_ITS ---
Radiation Oncology Weekly Treatment Management Patient: Ritchie Jasmine MR#: [id number] : 1955> Attending Physician: Dr. Carlyn Connelly Date of Service: 09/01/2023 Referring Physician(s) : Dr. Jaison Mariscal Diagnosis: C79.51 - Secondary malignant neoplasm of bone, Diagnosed 08/17/2023 (Active) Z17.0 - Estrogen receptor positive status [ER+], Diagnosed 01/02/2016 (Active) C50.411 - Malignant neoplasm of upper-outer quadrant of right female breast, Diagnosed 03/30/2015 (Active) Stage IIIA, T2, pN2, M0, G2 Radiotherapy to date: Course: Brain 2023, Treatment Site: [id number], Ref. ID: [id number], Energy: 15X, Dose/Fx (cGy): 300, #Fx: 8 / 10, Dose Correction (cGy): 0, Total Dose (cGy): 2,400, Start Date: 08/20/2023, Elapsed Days: 12 Course: RT Humerus 2023, Treatment Site: RT Humerus, Ref. ID: [email or web address], Energy: 15X, Dose/Fx (cGy): 400, #Fx: 3 / 5, Dose Correction (cGy): 0, Total Dose (cGy): 1,200, Start Date: 08/27/2023, Elapsed Days: 5 Reason for visit: The patient is being seen today as part of their regularly scheduled weekly on treatment visits to assess for acute toxicities from radiotherapy. Review of Systems: Patient just continues to be quite fatigued. She does not have any pain. And her mentation has cleared some. Vital Signs: Performed on 09/01/2023 2:44 PM BMI - 22.491 kg/m2, Height - 67 in, Weight - 143.6 lbs, Temperature - 98 f, Pulse - 92 /min, Respiration - 18 /min, O2 Sat - 95 % (low), Pain - 0, Fatigue - 0 and BP - 108/ 73 mm(hg). Physical Exam: No real changes Imaging: Radiation therapy imaging related to accurate target localization (i.e. KV, MV and CBCT) was reviewed. Appropriate changes, if any, were made to ensure treatment accuracy. Plan: Will continue with her treatments as planned Signed by: Dr. Carlyn Connelly 09/01/2023 3:28:17 PM
[2023-09-03] MEDS: fulvestrant 250 mg/5 mL Syringe 500 MG IM (15:11)
--- NOTE | 2023-09-07 10:02 | N.ONRD TS_ITS ---
, Radiation Oncology Treatment Summary Patient: Ritchie>Mitali MR#: [id number] : 1955> Age: 67> Sex: Female Dictated by: Kevin Wright Date of Service: 09/03/2023 Referring Physician(s) : Dr. Jaison Mariscal Diagnosis: C79.51 - Secondary malignant neoplasm of bone, Diagnosed 08/17/2023 (Active) Z17.0 - Estrogen receptor positive status [ER+], Diagnosed 01/02/2016 (Active) C50.411 - Malignant neoplasm of upper-outer quadrant of right female breast, Diagnosed 03/30/2015 (Active) Stage IIIA, T2, pN2, M0, G2 Radiotherapy to Date: Course: Brain 2023, Treatment Site: [id number], Ref. ID: [id number], Energy: 15X, Dose/Fx (cGy): 300, #Fx: 10 / 10, Dose Correction (cGy): 0, Total Dose (cGy): 3,000, start Date: 08/20/2023, End Date: 09/03/2023, Elapsed Days: 14 Course: RT Humerus 2023, Treatment Site: RT Humerus, Ref. ID: [email or web address], Energy: 15X, Dose/Fx (cGy): 400, #Fx: 5 / 5, Dose Correction (cGy): 0, Total Dose (cGy): 2,000, Start Date: 08/27/2023, End Date: 09/03/2023, Elapsed Days: 7 Clinical Summary: The patient tolerated RT well. Plan: End of treatment today. Continue on the above medication until the skin reaction resolves. Return patient to Medical Oncology for follow up. Signed by: Kevin Wright>09/07/2023 10:01:09 AM <<Signature on File>>
== END 2023-09-09 23:59 | disposition home or self-care (01) ==
PROVIDERS: PCP Family Medicine; Visit Provider Radiology Radiation Oncology
DX: C50.411 Malignant neoplasm of upper-outer quadrant of right female breast (principal); R53.0 Neoplastic (malignant) related fatigue; Z17.0 Estrogen receptor positive status [ER+]; E55.9 Vitamin D deficiency, unspecified; Z51.0 Encounter for antineoplastic radiation therapy; C79.51 Secondary malignant neoplasm of bone; C79.31 Secondary malignant neoplasm of brain; Z79.818 Long term (current) use of other agents affecting estrogen receptors and estrogen levels; Z79.899 Other long term (current) drug therapy; Z53.9 Procedure and treatment not carried out, unspecified reason; Z79.52 Long term (current) use of systemic steroids; Z78.0 Asymptomatic menopausal state; Z79.811 Long term (current) use of aromatase inhibitors; Z92.21 Personal history of antineoplastic chemotherapy
CPT/HCPCS: 77336; 77387; 77412; 77417; 96402; 99024; J9395

== ENCOUNTER 2023-09-12 09:04 | Inpatient (IN) | payer OTHER, SELFPAY ==
[2023-09-12] VITALS (8 sets, daily range): BP systolic 108–124; BP diastolic 66–78; PULSE 82–91; RESP 16; TEMP 36.8; O2SAT 91–94
--- NOTE | 2023-09-12 09:39 | XRR_ITS ---
PROCEDURE INFORMATION: Exam: XR Chest Exam date and time: 09/12/2023 10:40 AM Age: 67 years old Clinical indication: Dyspnea; Additional info: Generalized weakness and fatigue post therapeutic radiation TECHNIQUE: Imaging protocol: Radiologic exam of the chest. Views: 1 view. COMPARISON: NM bone scan whole body* [id number] 08/06/2023 9:30 AM FINDINGS: Lungs: See Diaphragm finding. Pleural spaces: No pleural effusion. Heart/Mediastinum: Cardiomediastinal contours within normal limits. Diaphragm: Elevated right hemidiaphragm. Mild basilar scar versus atelectasis. Bones/joints: Mild degenerative change present in the spine. XR/XR chest 1V portable [id number] IMPRESSION: No acute pathology.
--- NOTE | 2023-09-12 09:39 | CTR_ITS ---
PROCEDURE INFORMATION: Exam: CT Head Without And With Contrast Exam date and time: 09/12/2023 10:32 AM Age: 67 years old Clinical indication: Condition or disease; Brain tumor; Neoplasm of brain, not specified; Altered mental status/memory loss; Confusion or disorientation TECHNIQUE: Imaging protocol: Computed tomography of the head without and with contrast. Radiation optimization: All CT scans at this facility use at least one of these dose optimization techniques: automated exposure control; mA and/or kV adjustment per patient size (includes targeted exams where dose is matched to clinical indication); or iterative reconstruction. Contrast material: OMNI 350; Contrast volume: 95 ml; Contrast route: INTRAVENOUS (IV); COMPARISON: CT head w con [id number] 07/24/2023 7:47 PM RADIATION DOSE METRICS: Total DLP (mGy-cm): FINDINGS: Brain: See Bones/joints finding. Cerebral ventricles: Unremarkable for age. Paranasal sinuses: No significant pathology. Mastoid air cells: No significant pathology. Nasal cavity: Nasal septal deviation to the right. 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 One of these in the right frontal region is associated with soft tissue mass extending into the intracranial space with mass effect on the right frontal lobe on series 6, image 25, also present on the prior exam with a soft tissue component measuring approximate 3.4 x 1.9 cm without significant change. No midline shift is demonstrated on the current study. A 2nd lesion associated with intracranial soft tissue mass is located along the right sphenoid wing appearing slightly decreased compared to the prior study currently measuring 2.8 x 2.0 cm compared with 3.3 x 2.4 cm. This lesion is associated with vasogenic edema right temporal lobe. Soft tissues: No significant pathology. CT/CT head wo/w con [id number] IMPRESSION: Extensive skull metastases again noted. Mild interval decrease in associated soft tissue mass associated with one of the skull lesions located along the right sphenoid wing with continued contiguous vasogenic edema of the brain parenchyma. Second lesion associated with intracranial soft tissue mass in the right frontal region is not significantly changed.
--- NOTE | 2023-09-12 09:42 | ECG_ITS ---
[facility] Test Date: 2023-09-12 Pat Name: Kyler Dugan Department: Room: Gender: Female Guest Services: : 1955 Requested By: Dominick Royal Order Number: [id number] Shin MD: Rick Valente M.D. Measurements Intervals [place] Rate: 80 P: 62 [place]: 154 QRS: 46 QRSD: 80 T: 22 QT: 386 QTc: 448 Interpretive Statements SINUS RHYTHM POSSIBLE LEFT ATRIAL ENLARGEMENT [-0.1mV P-WAVE IN V1/V2] NONSPECIFIC ST & T-WAVE ABNORMALITY No previous ECG available for comparison Electronically Signed On 09-12-2023 23:11:32 MARKETING ADMINISTRATIVE ASSISTANT by Rick Valente M.D. [email or web address] [email or web address].[employer]/store/OM/[id number]
--- NOTE | 2023-09-12 09:49 | ED_ITS ---
HPI - Weakness 2 General: Chief complaint: Weakness Stated complaint: weakness, had 10 rounds of radiation Time Seen by Provider: 09/12/23 09:26 History of Present Illness: 67-year-old female with a known history of metastatic breast cancer to the bone and into the brain presents emergency department with present chief complaint of progressive weakness and fatigue this been ongoing getting worse over the last 1 month. Per the family the is having difficulty moving her around the patient has had significant appetite reduction and reduced oral intake per the he is having difficulty trying to manage the patient at home alone patient has not sustained any recent falls or sustained any recent injuries per the the patient has had appetite reduction and weight loss. Patient also has had a couple episodes of nonbloody diarrhea. The patient was brought into the ER for further assessment and management. Associated symptoms: Reports confusion; Denies chest pain, chills, fever(s), nausea or vomiting Review of Systems 2 General: Reports: 10 or more systems reviewed and unremarkable except in HPI and below Const: Reports: change in weight, fatigue and malaise; Denies: fever(s) or chills Eyes: Denies: change in vision or blurry vision Card: Denies: chest pain or palpitations Resp: Denies: dyspnea or productive cough GI: Denies: abdominal pain, nausea or vomiting : Denies: flank pain Musc: Denies: extremity pain or extremity swelling Skin/Breast: Denies: rash or pruritus Neuro: Reports: confusion Psych: Denies: anxiety or depression Jim/Lymph: Denies: easy bleeding All/Imm: Denies: urticaria, throat swelling or facial swelling PFSH ED 2 PFSH: Medical History Malignant neoplasm of upper-outer quadrant of right female breast Surgical History History of lymph node dissection of right axilla (04/12/15) Low axillary lymph node dissection Status post excisional biopsy (03/08/15) Excisional biopsy of right breast mass and of right axillary lymph node History of lumpectomy of right breast (03/22/15) Reexcision lumpectomy of right breast History of cholecystectomy Social History Smoking and tobacco/nicotine status: never used tobacco/nicotine Alcohol intake: never Substance/Drug Use: never Physical Exam 2 Narrative: EXAM NARRATIVE: Dry mucous membranes appreciated patient has a flat affect patient is nontoxic is afebrile, patient does appear to be quite dehydrated no focal neurodeficits appreciated on exam abdomen soft nontender nondistended Const: COMMON NORMALS: no acute distress HENMT: COMMON NORMALS: normocephalic and atraumatic HEAD & SCALP: n ormocephalic and atraumatic Eye: COMMON NORMALS: Equal, round and reactive pupils present and EOMs intact bilaterally PUPIL: Yes Equal, round and reactive pupils present Neck/C-Spine: COMMON NORMALS: full ROM, supple and no JVD Lymph: LYMPHATIC: no lymphadenopathy noted Chest: COMMONS NORMALS: normal inspection of the chest and normal palpation of entire chest wall Resp: COMMON NORMALS: normal respiratory effort, No retractions and clear to auscultation bilaterally EFFORT & INSPECTION: Yes able to speak in complete sentences and Yes symmetric chest movement AUSCULTATION: clear to auscultation bilaterally Cardio: COMMON NORMALS: no JVD, regular rate and regular rhythm RATE: r egular rate RHYTHM: regular rhythm GI: COMMON NORMALS: Normal to inspection, nondistended, normoactive bowel sounds present, Soft to palpation and non-tender INSPECTION: Yes normal to inspection PALPATION: Yes Soft to palpation : COMMON NORMALS: Yes no CVA tenderness BLADDER/KIDNEY EXAM: Yes no CVA tenderness Back/Pelvis: COMMON NORMALS: no CVA tenderness Extremity: COMMON NORMALS: normal to inspection and full ROM Neuro: COMMON NORMALS: CN's II-XII intact bilaterally, moves all extremities and no focal motor deficits Psych: COMMON NORMALS: mental status grossly normal, Normal thought process present, cooperative and normal affect THOUGHT PROCESS: Normal thought process present Skin: COMMON NORMALS: no rashes or lesions noted GENERAL SKIN EXAM: no rashes or lesions noted Course 2 Vital Signs: Vital signs: Vital Signs Temperature 98.3 F 09/12/23 09:08 Pulse Rate 82 09/12/23 13:24 Respiratory Rate 16 09/12/23 09:08 Blood Pressure 124/78 09/12/23 13:24 Pulse Oximetry 92 09/12/23 13:24 Oxygen Delivery Me thod Room Air 09/12/23 13:24 MDM - Weakness Medical Decision Making Due to patient's symptoms and condition IV will be established IV fluids Hydration lab work and imaging will be obtained per prior imaging the patient will did have a recent CT of the head with and without contrast that did reveal large mass in the brain we will be repeating this to see if there is any continuation or worsening of this underlying concerns of severe dehydration and progression of the patient's chronic disease process anticipate the need for further admission and/or transfer depending on the recommendation upon the patient and her family aggressiveness in regards to her care. Lab Data 09/12/23 09:30 09/12/23 09:30 Radiology Impressions Chest X-Ray 09/12/23:39 IMPRESSION: No acute pathology. Head CT 09/12/23:39 IMPRESSION: Extensive skull metastases again noted. Mild interval decrease in associated soft tissue mass associated with one of the skull lesions located along the right sphenoid wing with continued contiguous vasogenic edema of the brain parenchyma. Second lesion associated with intracranial soft tissue mass in the right frontal region is not significantly changed. Laboratory Results WBC 6.82 10^3/uL (3.29-11.43) 09/12/23 09:30 RBC 5.32 10^6/uL (3.85-5.65) 09/12/23:30 Hgb 15.40 g/dL (11.27-16.99) 09/12/23:30 Hct 46.9 % (36-47) 09/12/23 09:30 MCV 88.2 fl (85-98) 09/12/23:30 MCH 28.9 pg (27-33) 09/12/23: MCHC 32.8 g/dL (30-55) 09/12/23 09:30 RDW 16.8 % (12.1-15.1) H 09/12/23 09:30 Plt Count 163 10^3/cmm (157-399) 09/12/23:30 MPV 9.4 fL (7.4-10.4) 09/12/23 09:30 Lymph % (Auto) Not Reportable 09/12/23:30 Hartley % (Auto) Not Reportable 09/12/23 09:30 Lymph # (Auto) Not Reportable 09/12/23:30 [place]ley # (Auto) Not Reportable 09/12/23 09:30 Total Counted 100 (0-100) 09/12/23 09:30 Atypical Lymphs % 0.0 % (0-5) 09/12/23 09:30 Absolute Neutrophils 5.9 10^3/cmm (1.4-6.5) 09/12/23 09:30 Segmented Neutrophils 78 % 09/12/23 09:30 Abs Segm Neuts (Man) 5.3 10/cmm (1.6-7.1) 09/12/23 09:30 Band Neutrophils 8.0 % 09/12/23 09:30 Abs Band Neuts (Man) 0.5 10^3/cmm (0.0-1.2) 09/12/23 09:30 Absolute Lymphocytes 0.6 10^3/cmm (1.2-3.4) L 09/12/23 09:30 Lymphocytes (Manual) 9 % 09/12/23 09:30 Monocytes (Manual) 2.0 % 09/12/23 09:30 Absolute Monocytes 0.1 10^3/cmm (0.1-0.6) 09/12/23 09:30 Eosinophils (Manual) 0 % 09/12/23 09:30 Absolute Eosinophils 0.0 10^3/cmm (0.0-0.7) 09/12/23 09:30 Basophils (Manual) 0.0 % 09/12/23 09:30 Absolute Basophils 0.0 10^3/cmm (0.0-0.2) 09/12/23 09:30 Metamyelocytes 2.0 % 09/12/23 09:30 Promyelocytes 1.0 % 09/12/23 09:30 Platelet Estimate Normal (Normal) 09/12/23 09:30 PT 13.80 SECONDS (12.1-14.9) 09/12/23 09:30 INR 1.03 (0.8-1.2) 09/12/23 09:30 APTT 22.8 SECONDS (23.9-36.7) L 09/12/23 09:30 Sodium 138 mmol/L (136-145) 09/12/23 09:30 Potassium 4.4 mmol/L (3.5-5.1) 09/12/23 09:30 Chloride 102 mmol/L (98-107) 09/12/23 09:30 Carbon Dioxide 23 mmol/L (22-29) 09/12/23 09:30 Anion Gap 17.4 (5-19) 09/12/23 09:30 BUN 19 mg/dL (8-23) 09/12/23 09:30 Creatinine 0.5 mg/dL (0.5-0.9) 09/12/23 09:30 GFR Calculation 122.7 mL/min (90-130) 09/12/23 09:30 Glucose 207 mg/dL (65-115) H 09/12/23 09:30 Calculated Osmolality 294 mOsm/kg (285-295) 09/12/23 09:30 Lactic Acid 1.8 mmol/L (0.5-2.2) 09/12/23 09:30 Calcium 8.6 mg/dL (8.5-10.5) 09/12/23 09:30 Total Bilirubin 1.1 mg/dL (0.15-1.2) 09/12/23 09:30 AST 22 U/L (0-32) 09/12/23 09:30 ALT 46 U/L (0-33) H 09/12/23 09:30 Alkaline Phosphatase 89 U/L (35-105) 09/12/23 09:30 Troponin T Baseline 24 ng/L (0-10) H 09/12/23 09:30 Troponin T 120 Minute 19.87 ng/L (0-10) H 09/12/23 11:13 Delta Troponin T -4.13 ABS# (0-10) L 09/12/23 11:13 C-Reactive Protein 3.0 mg/L (0.0-4.9) 09/12/23 09:30 Total Protein 5.9 g/dL (6.6-8.7) L 09/12/23 09:30 Albumin 3.5 g/dL (3.5-5.2) 09/12/23 09:30 Globulin 2.4 g/dL (1.3-4.6) 09/12/23 09:30 Urine Color Kassi (Yellow) 09/12/23 10:21 Urine Appearance Clear (CLEAR) 09/12/23 10:21 Urine pH 5 (5-7) 09/12/23 10:21 Ur Specific [place] 1.020 (1.005-1.030) 09/12/23 10:21 Urine Protein Neg (Negative) 09/12/23 10:21 Urine Glucose (UA) Norm (Normal) 09/12/23 10:21 Urine Ketones 2+ (Negative) H 09/12/23 10:21 Urine Blood Neg (Negative) 09/12/23 10:21 Urine Nitrate Negative (Negative) 09/12/23 10:21 Urine Bilirubin 1+ (Negative) H 09/12/23 10:21 Urine Urobilinogen 1 mg/dL (Negative) H 09/12/23 10:21 Ur Leukocyte Esterase Negative (Negative) 09/12/23 10:21 All radiology interpretation(s) finalized by discharge Other Data Discussed patient's case at length with the patient's present as well as Dr. Saldivar hospitalist is granted acceptance for hydration in for referral for hospice care which patient and family are agreeable to patient will be admitted for further care. Discharge Plan Discharge Patient Disposition: Admitted As Inpatient Clinical Impression: Adult failure to thrive, Dehydration, Malignant neoplasm metastatic to breast Condition: Stable Prescriptions: No Action dexamethasone 4 mg tablet 4 mg PO BID Qty: 68 0RF (DME) Walker See Rx Instructions .Route .MEDSUPPLY Qty: 1 0RF Rx Instructions: As directed Referrals: Sandi Tran MD [Primary Care Provider] - Coding Level of Care Code ED Point Of Sale Associate for Susieg Kimberli
[2023-09-12] MEDS: sodium chloride 0.9% 1,000 ML 999 ML IV (09:57)
[2023-09-12 10:02] LABS: Hematocrit 46.9 % (36-47); Mean Corpuscular HGB Conc 32.8 g/dL (30-55); Mean Corpuscular Hemoglobin 28.9 pg (27-33); Mean Corpuscular Volume 88.2 fl (85-98); Mean Platelet Volume 9.4 fL (7.4-10.4); Platelet Count 163 10^3/cmm (157-399); Red Blood Count 5.32 10^6/uL (3.85-5.65); Red Cell Distribution Width 16.8 % (12.1-15.1); White Blood Count 6.82 10^3/uL (3.29-11.43)
[2023-09-12 10:09] LABS: INR 1.03 (0.8-1.2)
[2023-09-12 10:10] LABS: Partial Thromboplastin Time 22.8 SECONDS (23.9-36.7)
[2023-09-12 10:16] LABS: Troponin(5th) Baseline 24 ng/L (0-10)
[2023-09-12 10:17] LABS: Alanine Aminotransferase 46 U/L (0-33); Albumin Level 3.5 g/dL (3.5-5.2); Alkaline Phosphatase 89 U/L (35-105); Aspartate Amino Transferase 22 U/L (0-32); Blood Urea Nitrogen 19 mg/dL (8-23); Calcium 8.6 mg/dL (8.5-10.5); Carbon Dioxide 23 mmol/L (22-29); Chloride 102 mmol/L (98-107); Globulin 2.4 g/dL (1.3-4.6); Glomerular Filtration Rate 122.7 mL/min (90-130); Glucose 207 mg/dL (65-115); Osmolality Calculated 294 mOsm/kg (285-295); Slide Review Slide Review Perform; Sodium 138 mmol/L (136-145); Total Bilirubin 1.1 mg/dL (0.15-1.2); Total Protein 5.9 g/dL (6.6-8.7)
[2023-09-12 10:18] LABS: Lactic Sepsis W/Reflex 1.8 mmol/L (0.5-2.2)
[2023-09-12 10:19] LABS: Anion Gap 17.4 (5-19); Potassium 4.4 mmol/L (3.5-5.1)
[2023-09-12 10:20] LABS: Absolute Segmented Neutrophil 5.3 10/cmm (1.6-7.1); Band Neutrophils Absolute 0.5 10^3/cmm (0.0-1.2); Eosinophils 0 %; Lymphocytes 9 %; Lymphocytes Absolute 0.6 10^3/cmm (1.2-3.4); Monocytes Absolute 0.1 10^3/cmm (0.1-0.6); Segmented Neutrophils 78 %; Total Cells Counted 100 (0-100)
[2023-09-12 10:21] LABS: Absolute Neutrophil 5.9 10^3/cmm (1.4-6.5); Platelet Estimate Normal (Normal)
[2023-09-12 10:27] LABS: Add Urine Microscopic? NO; Charge for UA Resulting for Rev
[2023-09-12 10:31] LABS: Bilirubin Urine 1+ (Negative); Blood Urine Neg (Negative); Glucose Urine UA Norm (Normal); Ketones Urine 2+ (Negative); Leukocyte Esterase Urine Negative (Negative); Nitrate Urine Negative (Negative); Protein Urine Neg (Negative); Urine Appearance Clear (CLEAR); Urine Color Amber (Yellow); Urobilinogen Urine 1 mg/dL (Negative); pH Urine 5 (5-7)
[2023-09-12] MEDS: iohexol 350 mg/mL 500 mL Btl (per mL) IV (10:35)
--- NOTE | 2023-09-12 11:32 | ECG_ITS ---
[facility] Test Date: 2023-09-12 Pat Name: Kyler Dugan Department: Room: Gender: Female Field Marketing Director: : 1955 Requested By: Dominick Royal Order Number: [id number] Shin MD: Rick Valente M.D. Measurements Intervals [place] Rate: 82 P: 70 [place]: 164 QRS: 46 QRSD: 81 T: 25 QT: 394 QTc: 461 Interpretive Statements SINUS RHYTHM POSSIBLE LEFT ATRIAL ENLARGEMENT [-0.1mV P-WAVE IN V1/V2] NONSPECIFIC ST & T-WAVE ABNORMALITY Compared to ECG 09/12/2023 09:49:04 No significant changes Electronically Signed On 09-12-2023 23:22:54 EMPLOYEE RELATIONS ASSISTANT by Rick Valente M.D. [email or web address].[employer], [facility].[employer]/store/OM/[id number]/[id number]
[2023-09-12 11:41] LABS: Troponin 5 2HR 19.87 ng/L (0-10)
[2023-09-12 11:42] LABS: Troponin 5 2HR Delta -4.13 ABS# (0-10)
--- NOTE | 2023-09-12 15:10 | P.HP_ITS ---
Providers/Chief Complaint 2 Primary Care Provider: Sandi Tran MD Chief Complaint: weakness, had 10 rounds of radiation History of Present Illness 67-year-old female with history of known metastatic breast cancer with extensive involvement of bone, mets to brain presented to the hospital with her for progressive generalized weakness and failure to thrive. cannot take care of her at home at this time and they are looking for possible transitioning to halfway facility with hospice vs home. She has had reduction in appetite and significant weight loss. There was a recent CT head which revealed a large mass in the brain. CT head done in ER today shows Extensive skull metastases again noted. Mild interval decrease in associated soft tissue mass associated with one of the skull lesions located along the right sphenoid wing with continued contiguous vasogenic edema of the brain parenchyma. Second lesion associated with intracranial soft tissue mass in the right frontal region is not significantly changed. Medications/Allergies Home Medications Medication Instructions Recorded Confirmed Last Taken Type dexamethasone 4 mg tablet 4 mg PO BID #68 tabs 08/11/23 09/12/23 09/12/23 Rx Walker #1 ea 09/10/23 09/12/23 Unknown Rx Allergies Allergy/AdvReac Type Severity Reaction Status Date / Time No Known Allergies Allergy Verified 09/12/23 10:57 PFSH Acute 2 PFSH: Medical History Malignant neoplasm of upper-outer quadrant of right female breast Surgical History History of lymph node dissection of right axilla (04/12/15) Low axillary lymph node dissection Status post excisional biopsy (03/08/15) Excisional biopsy of right breast mass and of right axillary lymph node History of lumpectomy of right breast (03/22/15) Reexcision lumpectomy of right breast History of cholecystectomy Social History Smoking and tobacco/nicotine status: never used tobacco/nicotine Alcohol intake: never Substance/Drug Use: never Vitals/I&O/Wt Last Vital Signs Temp 98.3 F 09/12/23 09:08 Pulse 82 09/12/23 13:24 Resp 16 09/12/23 09:08 BP 124/78 09/12/23 13:24 Pulse Ox 92 09/12/23 13:24 O2 Del Method Room Air 09/12/23 13:24 09/12/23 09/12/23 09/12/23 06:59 14:59 22:59 Intake Total 1000 / 1000 Balance 1000 / 1000 Physical Exam 2 Narrative: Cachectic appearing female, fragile seen laying in bed with at bedside Normal S1-S2 Abdomen soft nontender Lungs clear to auscultation bilaterally Extremities: No edema Patient unable to answer questions or speak much. All she said was she is ok. Did not answer me. Data 09/12/23 09:30 09/12/23 09:30 Micro: Microbiology 09/12/23 11:13 Blood Culture - Preliminary Blood SPECIMEN COLLECTED 09/12/23 09:58 Blood Culture - Preliminary Blood SPECIMEN COLLECTED A&P Assessment and plan (1) Exposure to COVID-19 virus: (2) Secondary malignant neoplasm of bone: (3) Malignant neoplasm metastatic to breast: (4) Malignant neoplasm of upper-outer quadrant of right female breast: (5) Dehydration: (6) Unexplained weight loss: (7) Adult failure to thrive: (8) Comfort measures only status: Plan #Comfort Measures only #Metastatic breast cancer with mets to brain and bone #Failure to thrive #Severe protein calorie malnutrition #CKD - Had a goals of care discussion with . Patient has extensive mets to brain and bone. ? would like to transition over to hospice at this time. ?Patient son available at bedside as well and in agreement - Patient did not talk to me or respond to questions. She is awake however very weak in answering. - is DPOA. - Will start comfort measures and admit as hospice - Explained to that we will not give IV fluids, or other treatment medications such as antibiotics. We will use ativan and morphine mainly for comfort measures for symptoms as patient requires. - Will order clear liquid diet as per request - Continue banks for comfort measures - Patient's would like a hospital bed, and equipment and prefers to take her home with hospice if possible however it being a weekend this is not possible. Allow natural Comfort measures only Attestations 2 Medical Necessity Statement*: Observation admission for transitioning over to hospice. Diagnoses Exposure to COVID-19 virus Z20.822 Secondary malignant neoplasm of bone C79.51 Malignant neoplasm metastatic to breast C79.81 Malignant neoplasm of upper-outer quadrant of right female breast C50.411 Dehydration E86.0 Unexplained weight loss R63.4 Adult failure to thrive R62.7 Comfort measures only status Z51.5
--- NOTE | 2023-09-12 15:42 | ECG_ITS ---
[facility] Test Date: 2023-09-12 Pat Name: Kyler Dugan Department: Room: Gender: Female Wrapper Opener: : 1955 Requested By: Dominick Royal Order Number: [id number] Shin MD: Rick Valente M.D. Measurements Intervals [place] Rate: 88 P: 75 [place]: 155 QRS: 48 QRSD: 81 T: 34 QT: 379 QTc: 461 Interpretive Statements SINUS RHYTHM POSSIBLE LEFT ATRIAL ENLARGEMENT [-0.1mV P-WAVE IN V1/V2] NONSPECIFIC ST & T-WAVE ABNORMALITY Compared to ECG 09/12/2023 11:32:48 No significant changes Electronically Signed On 09-12-2023 23:22:08 SWIMMING POOL PLASTERER HELPER by Rick Valente M.D. [email or web address] [email or web address] [facility].[employer]/store/OM/[id number]
[2023-09-13 06:00] VITALS: BMI 22.1
[2023-09-13] MEDS: dexamethasone 4 mg Tablet PO ×2 (08:41→18:01)
[2023-09-13] MEDS: blistex lip oint 7 gm Tube 1 APPLIC TOPICAL (12:08)
[2023-09-13] MEDS: lanolin oint 7 gm 1 APPLIC TOPICAL (12:08)
--- NOTE | 2023-09-13 13:06 | P.PN_ITS ---
Subjective 2 Subjective: Resting comfortably in bed. at bedside. Vitals/I&O/Wt Last Vital Signs Temp 98.3 F 09/12/23 09:08 Pulse 91 09/12/23 16:13 Resp 16 09/12/23 09:08 BP 111/66 09/12/23 16:13 Pulse Ox 91 09/12/23 16:13 O2 Del Method Room Air 09/12/23 17:38 09/12/23 09/13/23 09/13/23 22:59 06:59 14:59 Output Total 450 / 450 Balance -450 / 550 Weight last 48 hrs Weight 64.319 kg Weight 63.957 kg Physical Exam 2 Narrative: Cachectic appearing female, fragile seen laying in bed with at bedside Normal S1-S2 Abdomen soft nontender Lungs clear to auscultation bilaterally Extremities: No edema Patient unable to answer questions or speak much. All she said was she is ok. Did not answer me. Same as yesterday. Does not talk very much. Just said that she wants to use the bathroom. Urinary Catheter Management: Banks: Cath Placed During This Visit: yes Reason for Continuing Indwelling Catheter: Hospice/Comfort/Palliative Care Urinary Catheter Date of Insertion: 09/12/23 Urinary Catheter Time of Insertion: 17:00 Data 09/12/23 09:30 09/12/23 09:30 Micro: Microbiology 09/12/23 09:58 Blood Culture - Preliminary Blood NEGATIVE TO DATE 09/12/23 11:13 Blood Culture - Preliminary Blood A&P Assessment and plan (1) Exposure to COVID-19 virus: (2) Secondary malignant neoplasm of bone: (3) Malignant neoplasm metastatic to breast: (4) Malignant neoplasm of upper-outer quadrant of right female breast: (5) Dehydration: (6) Unexplained weight loss: (7) Adult failure to thrive: (8) Comfort measures only status: Plan #Comfort Measures only #Metastatic breast cancer with mets to brain and bone #Failure to thrive #Severe protein calorie malnutrition #CKD - Had a goals of care discussion with . Patient has extensive mets to brain and bone. ? would like to transition over to hospice at this time. ?Patient son available at bedside as well and in agreement - Patient did not talk to me or respond to questions. She is awake however very weak in answering. - is DPOA. - Will start comfort measures and admit as hospice - Explained to that we will not give IV fluids, or other treatment medications such as antibiotics. We will use ativan and morphine mainly for comfort measures for symptoms as patient requires. I did tell patient's today and patient that 1 out of 4 bottles of blood cultures are positive. They would not like to pursue further treatment with antibiotics at this time. -Continue clear liquid diet related - Continue banks for comfort measures - Patient's would like a hospital bed, bedside commode, wheelchair and a walker and equipment and prefers to take her home with hospice. Consult case management in morning. Allow natural Comfort measures only Attestations 2 Medical Necessity Statement*: Comfort measures. Admitted for respite care. Discharged home with hospice once this is set up in morning. Diagnoses Exposure to COVID-19 virus Z20.822 Secondary malignant neoplasm of bone C79.51 Malignant neoplasm metastatic to breast C79.81 Malignant neoplasm of upper-outer quadrant of right female breast C50.411 Dehydration E86.0 Unexplained weight loss R63.4 Adult failure to thrive R62.7 Comfort measures only status Z51.5
[2023-09-14 06:00] VITALS: BMI 22.1
[2023-09-14] MEDS: dexamethasone 4 mg Tablet PO (08:01)
--- NOTE | 2023-09-14 09:34 | PC.CHAP ---
Pastoral Care Encounter/Spiritual Assessment Type of Contact [] Declined electronic console display operator visit [] Patient/Family/Request visit [] Outpatient visit [] Follow-up visit [] Physician referral [] Code/Alert [x] Routine visit [] Staff referral [] Actively dying [] Patient sleeping [x] Family support [] [] Out of room [] Palliative care [] [] Receiving care in room [] Pre-surgical visit [] Trauma [] Long length of stay [] ICU visit [] Other: Relational/Emotional Strength [x] Patient feels connected with others/family/visitors/staff [] Distress [] Loneliness/isolation [] Abandonment Spirituality of Patient [x] Person of Hilary [] Attends Congregation of their Hilary [x] Believes in Prayer [] Reads Bible or Holiness materials [] There are Spiritual issues to be addressed Fixer Supervisor Interventions [x] Prayer [x] Active listening [x] Non-anxious presence [x] Spiritual/emotional support [] Crisis/trauma care [] Spiritual counseling [] Bereavement support [] Provided bereavement packet [] Provided Bible/devotional materials [] Provided toy/stuffed animal, coloring book to patient or family member [] Provided Communion [] Anointing/[place] [] Salvation [x] Completed spiritual assessment [] Other: Impact on Illness or Injury [] Angry [] Fearful [] Anxious [] Often cries [] Exhaustion [] Unable to work [] Unable to attend yazidi [] Unable to walk/stand [] Unable to read [] Unable to drive [] Unable to eat/drink [] Unable to sleep [] Unable to be with family [] Patient intubated [] Other: Summary Time spent with patient 5 min
--- NOTE | 2023-09-14 12:02 | PC.SOCIAL ---
Pg 2 IMM. Explained to pt's family Pg 2 IMM. no questions voiced. Provided pt a copy. Initialed, dated, & timed a copy & placed in chart.
--- NOTE | 2023-09-14 16:26 | P.DS_ITS ---
Discharge Providers Date of Admission: 09/12/23 15:00 Date of Discharge: September 14, 2023 Attending Provider at Admission: Leslie Saldivar MD Attending Provider at Discharge: Meg Phillips MD Primary Care Provider: Sandi Tran MD Diagnoses at Discharge Discharge Diagnosis (1) Exposure to COVID-19 virus: Status: Acute (2) Secondary malignant neoplasm of bone: Status: Acute (3) Malignant neoplasm metastatic to breast: Status: Acute (4) Malignant neoplasm of upper-outer quadrant of right female breast: Status: Acute (5) Dehydration: Status: Acute (6) Unexplained weight loss: Status: Acute (7) Adult failure to thrive: Status: Acute (8) Comfort measures only status: Status: Acute Reason for Visit Reason for Visit: weakness, had 10 rounds of radiation Hospital Course Hospital Course 67-year-old female with history of known metastatic breast cancer with extensive involvement of bone, mets to brain presented to the hospital with her for progressive generalized weakness and failure to thrive. She has had reduction in appetite and significant weight loss. CT head done in ER today shows Extensive skull metastases again noted. After goals of care discussion with patient's family and hospitalist, it was decided to transition patient over to hospice. She was started on comfort measures while in the hospital. Home hospice was able to be arranged by the time of discharge. She is being transitioned to home hospice today. Physical Exam Narrative: General: No acute distress, AO x1 Complete examination not performed to allow for patient comfort Urinary Catheter Management: Hunter: Cath Placed During This Visit: yes Reason for Continuing Indwelling Catheter: Hospice/Comfort/Palliative Care Urinary Catheter Date of Insertion: 09/12/23 Urinary Catheter Time of Insertion: 17:00 Discharge Data Studies Completed and Pending Completed Studies During Hospitalization Category Date Time Status CT head wo/w con 17158 Stat Cat Scan 09/12/23 09:39 Completed XR chest 1V portable 20500 Stat Exams 09/12/23 09:39 Completed Pending at discharge Category Date Time Status Blood Culture Stat Lab 09/12/23 11:13 Results Radiology Impressions Chest X-Ray 09/12/23 09:39 IMPRESSION: No acute pathology. Head CT 09/12/23 09:39 IMPRESSION: Extensive skull metastases again noted. Mild interval decrease in associated soft tissue mass associated with one of the skull lesions located along the right sphenoid wing with continued contiguous vasogenic edema of the brain parenchyma. Second lesion associated with intracranial soft tissue mass in the right frontal region is not significantly changed. Laboratory Results WBC 6.82 10^3/uL (3.29-11.43) 09/12/23 09:30 RBC 5.32 10^6/uL (3.85-5.65) 09/12/23 09:30 Hgb 15.40 g/dL (11.27-16.99) 09/12/23 09:30 Hct 46.9 % (36-47) 09/12/23 09:30 MCV 88.2 fl (85-98) 09/12/23 09:30 MCH 28.9 pg (27-33) 09/12/23 09:30 MCHC 32.8 g/dL (30-55) 09/12/23 09:30 RDW 16.8 % (12.1-15.1) H 09/12/23 09:30 Plt Count 163 10^3/cmm (157-399) 09/12/23 09:30 MPV 9.4 fL (7.4-10.4) 09/12/23 09:30 Lymph % (Auto) Not Reportable 09/12/23 09:30 [place] % (Auto) Not Reportable 09/12/23 09:30 Lymph # (Auto) Not Reportable 09/12/23 09:30 [place] # (Auto) Not Reportable 09/12/23 09:30 Total Counted 100 (0-100) 09/12/23 09:30 Atypical Lymphs % 0.0 % (0-5) 09/12/23 09:30 Absolute Neutrophils 5.9 10^3/cmm (1.4-6.5) 09/12/23 09:30 Segmented Neutrophils 78 % 09/12/23 09:30 Abs Segm Neuts (Man) 5.3 10/cmm (1.6-7.1) 09/12/23 09:30 Band Neutrophils 8.0 % 09/12/23 09:30 Abs Band Neuts (Man) 0.5 10^3/cmm (0.0-1.2) 09/12/23 09:30 Absolute Lymphocytes 0.6 10^3/cmm (1.2-3.4) L 09/12/23 09:30 Lymphocytes (Manual) 9 % 09/12/23 09:30 Monocytes (Manual) 2.0 % 09/12/23 09:30 Absolute Monocytes 0.1 10^3/cmm (0.1-0.6) 09/12/23 09:30 Eosinophils (Manual) 0 % 09/12/23 09:30 Absolute Eosinophils 0.0 10^3/cmm (0.0-0.7) 09/12/23 09:30 Basophils (Manual) 0.0 % 09/12/23 09:30 Absolute Basophils 0.0 10^3/cmm (0.0-0.2) 09/12/23 09:30 Metamyelocytes 2.0 % 09/12/23 09:30 Promyelocytes 1.0 % 09/12/23 09:30 Platelet Estimate Normal (Normal) 09/12/23 09:30 PT 13.80 SECONDS (12.1-14.9) 09/12/23 09:30 INR 1.03 (0.8-1.2) 09/12/23 09:30 APTT 22.8 SECONDS (23.9-36.7) L 09/12/23 09:30 Sodium 138 mmol/L (136-145) 09/12/23 09:30 Potassium 4.4 mmol/L (3.5-5.1) 09/12/23 09:30 Chloride 102 mmol/L (98-107) 09/12/23 09:30 Carbon Dioxide 23 mmol/L (22-29) 09/12/23 09:30 Anion Gap 17.4 (5-19) 09/12/23 09:30 BUN 19 mg/dL (8-23) 09/12/23 09:30 Creatinine 0.5 mg/dL (0.5-0.9) 09/12/23 09:30 GFR Calculation 122.7 mL/min (90-130) 09/12/23 09:30 Glucose 207 mg/dL (65-115) H 09/12/23 09:30 Calculated Osmolality 294 mOsm/kg (285-295) 09/12/23 09:30 Lactic Acid 1.8 mmol/L (0.5-2.2) 09/12/23 09:30 Calcium 8.6 mg/dL (8.5-10.5) 09/12/23 09:30 Total Bilirubin 1.1 mg/dL (0.15-1.2) 09/12/23 09:30 AST 22 U/L (0-32) 09/12/23 09:30 ALT 46 U/L (0-33) H 09/12/23 09:30 Alkaline Phosphatase 89 U/L (35-105) 09/12/23 09:30 Troponin T Baseline 24 ng/L (0-10) H 09/12/23 09:30 Troponin T 120 Minute 19.87 ng/L (0-10) H 09/12/23 11:13 Delta Troponin T -4.13 ABS# (0-10) L 09/12/23 11:13 C-Reactive Protein 3.0 mg/L (0.0-4.9) 09/12/23 09:30 Total Protein 5.9 g/dL (6.6-8.7) L 09/12/23 09:30 Albumin 3.5 g/dL (3.5-5.2) 09/12/23 09:30 Globulin 2.4 g/dL (1.3-4.6) 09/12/23 09:30 Urine Color [place] (Yellow) 09/12/23 10:21 Urine Appearance Clear (CLEAR) 09/12/23 10:21 Urine pH 5 (5-7) 09/12/23 10:21 Ur Specific [place] 1.020 (1.005-1.030) 09/12/23 10:21 Urine Protein Neg (Negative) 09/12/23 10:21 Urine Glucose (UA) Norm (Normal) 09/12/23 10:21 Urine Ketones 2+ (Negative) H 09/12/23 10:21 Urine Blood Neg (Negative) 09/12/23 10:21 Urine Nitrate Negative (Negative) 09/12/23 10:21 Urine Bilirubin 1+ (Negative) H 09/12/23 10:21 Urine Urobilinogen 1 mg/dL (Negative) H 09/12/23 10:21 Ur Leukocyte Esterase Negative (Negative) 09/12/23 10:21 Vitals Last Vital Signs Temp 98.3 F 09/12/23 09:08 Pulse 91 09/12/23 16:13 Resp 16 09/12/23 09:08 BP 111/66 09/12/23 16:13 Pulse Ox 91 09/12/23 16:13 O2 Del Method Room Air 09/12/23 17:38 Discharge Plan Discharge Patient Disposition: Hospice - Home Condition: Stable Prescriptions: Continued dexamethasone 4 mg tablet 4 mg PO BID Qty: 68 0RF (DME) Walker See Rx Instructions .Route .MEDSUPPLY Qty: 1 0RF Rx Instructions: As directed Discharge Orders: Discharge Order (Routine); Ordered 09/14/23 Ordered By: Meg Phillips Referrals: [facility] [Outside] Sandi Tran MD [Primary Care Provider] - Patient Instructions: Hospice Care, Opioid Safety Discharge Attestations Time Spent in Discharge Care*: greater than 30 min Quality Metrics Clinical Quality Measures [ No reported AMI, CVA or VTE this stay] Coding Level of Care Code Acute Code for Chg Fwd Diagnoses Exposure to COVID-19 virus Z20.822 Secondary malignant neoplasm of bone C79.51 Malignant neoplasm metastatic to breast C79.81 Malignant neoplasm of upper-outer quadrant of right female breast C50.411 Dehydration E86.0 Unexplained weight loss R63.4 Adult failure to thrive R62.7 Comfort measures only status Z51.5
== END 2023-09-14 15:12 | disposition hospice, home (50) | DRG 597 ==
LOC: ER 15:32 → MEDSURG 17:03
PROVIDERS: Admitting Provider Internal Medicine; Emergency Provider Emergency Medicine; PCP Family Medicine; Visit Provider Student in an Organized Health Care Education/Training Program
DX: C50.411 Malignant neoplasm of upper-outer quadrant of right female breast (principal); E43 Unspecified severe protein-calorie malnutrition; C79.51 Secondary malignant neoplasm of bone; C79.31 Secondary malignant neoplasm of brain; Z20.822 Contact with and (suspected) exposure to COVID-19; E86.0 Dehydration; N18.9 Chronic kidney disease, unspecified; Z68.22 Body mass index [BMI] 22.0-22.9, adult; Z51.5 Encounter for palliative care
CPT/HCPCS: 36415; 51702; 70470; 71045; 80053; 81003; 83605; 84484; 85007; 85025; 85610; 85730; 86140; 87040; 87205; 93005; 99285; J7030; J8540; Q9967